=== PATIENT | male | born 1955 | race African-American/Black ===

== ENCOUNTER 2016-06-27 19:31 | Inpatient (IN) ==
[2016-06-27] MEDS ORDERED: NS 1,000 ML IV ONE ×3 (20:54→23:19)
--- NOTE | 2016-06-27 20:56 | PROVIDER DOCUMENTATION ---
HPI-General Adult - General Chief Complaint: High Blood Sugar Stated Complaint: HIGH SUGAR Time Seen by Provider: 06/27/16 20:55 Source: patient, family Unable to obtain history due to:: urgency Allergies/Adverse Reactions: Patient Allergies Allergy/AdvReac Type Severity Reaction Status Date / Time No Known Allergies Allergy Verified 06/27/16 21:11 Home Medications: Home Medication List Medication Instructions Recorded Confirmed Last Taken Type ATORVAstatin [Lipitor] 06/27/16 Unknown History Amlodipine Besylate [Norvasc] 10 mg PO DAILY 06/27/16 06/27/16 Unknown History Carvedilol [Coreg] 6.25 mg PO DAILY 06/27/16 06/27/16 Unknown History Insulin Detemir [Levemir] 20 units SQ 06/27/16 Unknown History LISINOpril [Prinivil] 10 mg PO DAILY 06/27/16 06/27/16 Unknown History Linagliptin [Tradjenta] 5 mg PO DAILY 06/27/16 06/27/16 Unknown History - History of Present Illness -Gen Adult Nature of Presenting Problems: 61 yom with increased blood sugar for a few weeks, been very weak, almost falling at home. Symptoms continue to get worse. Pt also has polyuria, polydipsia, polyphagia. Location of Pain/Injury: reports: none Associated Symptoms: reports: weakness, trouble walking - Diabetes Related Context Context: reports: high blood sugar Review of Systems - Adult - REVIEW OF SYSTEMS - ADULT Constitutional: reports: see HPI, chills Eyes: reports: no symptoms reported Ears, Nose, Mouth & Throat: reports: no symptoms reported Cardiovascular: reports: no symptoms reported Respiratory: reports: no symptoms reported Gastrointestinal: reports: see HPI, nausea Genitourinary: reports: see HPI, frequency Musculoskeletal: reports: see HPI, muscle weakness Integumentary: reports: no symptoms reported Neurological: reports: no symptoms reported Psychiatric: reports: no symptoms reported All Other Systems: Reviewed and Negative Past History - Adult - PAST MEDICAL HISTORY-ADULT Review of Records: reports: Old Records Reviewed, Nursing Assessment Review, Medications Reviewed, Social history reviewed & non-contributory. Physical Exam-General - PHYSICAL EXAM-ADULT Initial Vital Signs Reviewed: Yes - CONSTITUTIONAL General Appearance: appears well, alert, no apparent distress - EYES Eyes: PERRL/EOMI, pink conjunctivae - HEAD, EARS, NOSE, MOUTH & THROAT HENMT: normocephalic/atraumatic, moist mucous membranes, normal ENT inspection - NECK Neck: non-tender, full range of motion, supple - RESPIRATORY Respiratory: chest non-tender, lungs clear, normal breath sounds, no pleuratic chest pain, no respiratory distress, no accessory muscle use - CARDIOVASCULAR Cardiovascular: normal peripheral pulses, regular rate, rhythm, no edema, no gallop, no JVD, no murmur - GASTROINTESTINAL (ABDOMEN) Abdominal Exam: normal bowel sounds, non tender, soft, no organomegaly, no pulsatile mass - LYMPHATIC Lymphatic: no adenopathy - MUSCULOSKELETAL Back Exam: normal inspection, no CVA tenderness, no vertebral tenderness Extremity: normal range of motion, non-tender, normal inspection, no pedal edema , no calf tenderness, normal capillary refill, pelvis stable - SKIN Integumentary: normal color, normal turgor, warm/dry - NEUROLOGIC Neurologic: grossly normal - PSYCHIATRIC Psych/Mental Status: oriented x 3 Progress - PLAN OF CARE/RESULTS Progress/Plan/Lab Results: Vital Signs - 8 hr 06/27/16 19:47 Temperature 98.9 F Pulse Rate 110 H Respiratory Rate 24 Blood Pressure 149/94 O2 Sat by Pulse Oximetry 97 Orders Category Date Time Status FSBS [Finger Stick Blood Sugar (ED)] DIRECTED Care 06/27/16 19:58 Active ABG [RESP] Stat Lab 06/27/16 20:53 Ordered CBC WITH DIFF [HEME] Stat Lab 06/27/16 19:57 Ordered COMPREHENSIVE METABOLIC PANEL [CHEM] Stat Lab 06/27/16 19:[address] W/POSS RFLX CULT [URINALYSIS] Stat Lab 06/27/16 19:57 Uncollected Ns 1000 ml IV Bolus X1 Med 06/27/16 20:54 Ordered 0.9% Sodium Chloride Inj [Ns] 1,000 ml IV 999 mls/hr Result Diagrams: 06/27/16 20:55 06/27/16 20:55 - CT/MRI 1 CT Study: Head Impression: Normal (Per radiologist.) - CONSULTS/PCP/HOSPITALIST Notification #1 *Consult/PCP/Hospitalist*: Ramsey Time Discussed: 23:15 Consult Disposition: Admit Departure - Departure Time of Disposition Decision: 23:15 DIAGNOSIS: Dehydration, Hyperglycemia UTI (urinary tract infection) Qualifiers: Urinary tract infection type: site unspecified Hematuria presence: without hematuria Qualified Code(s): N39.0 - Urinary tract infection, site not specified Disposition: ADMITTED INPATIENT 09 Certified Medical Emergency: Emergent Condition: Stable Referrals and Follow-Ups: None,PCP [Primary Care Provider] - Attestation - Physician/ GEOFFREY Attestation Patient care was provided by Advanced Practice Provider:: Yes Advanced Practice Provider:: Juan Miguel Brown Advanced Practice Provider documentation review:: The Mid-level provider documentation, treatment plan and medical decision making was reviewed by the physician who agrees with all treatment and medical decision making by the MLP.
[2016-06-27 21:10] LABS: BLOOD TYPE ARTERIAL; DRAW SITE R BRACHIAL; METHB 1.3 % (0.0-1.5); O2(CT) 16.8 mL/dL (15.0-23.0); PCO2(98.6) 29 mmHg (35-45); PO2(98.6) 60 mmHg (60-100); SAMPLE BLOOD; SAO2 94.4 % (95.0-100.0); THB 13.1 g/dL (11.5-17.4); pH(98.6) 7.41 (7.35-7.45)
[2016-06-27 21:12] LABS: MODALITY ROOM AIR
[2016-06-27 21:18] LABS: BASO% 0.1 % (0.0-0.8); HEMATOCRIT 38.4 % (42.0-52.0); HEMOGLOBIN 12.8 g/dL (14.0-18.0); IMM GRAN# 0.04 X1000 (0.0-0.04); IMM GRAN% 0.3 % (0.0-0.5); LYMPH# 0.85 X1000 (1.2-3.4); LYMPH% 6.4 % (20.5-51.1); MANUAL DIFF NEEDED? YES; MCH 27.1 PG (27-31); MCHC 33.3 g/dL (33-37); MCV 81.2 FL (81-99); MONO# 0.57 X1000 (0.11-0.59); MONO% 4.3 % (1.7-9.3); MPV 9.5 FL (7.4-10.4); NEUT% 88.9 % (42.2-75.2); PLT 259 X1000 (130-400); RBC 4.73 XMIL (4.7-6.1)
[2016-06-27 21:27] LABS: LYMPHS 5 % (21-51); MONO 2 % (1-9)
[2016-06-27 21:49] LABS: ALBUMIN 3.1 g/dL (3.5-5.0); CALCIUM 9.1 mg/dL (8.8-10.2); POTASSIUM 4.4 mmol/L (3.5-5.1); TOTAL BILIRUBIN 0.5 mg/dL (0.20-1.00); TOTAL PROTEIN 7.2 g/dL (6.3-8.3)
[2016-06-27] MEDS ORDERED: HUMULIN R (PARKWAY) IV ONE (22:10)
[2016-06-27 22:59] LABS: BILIRUBIN URINE NEGATIVE (NEGATIVE); BLOOD URINE 4+ (NEGATIVE); CLARITY CLEAR (CLEAR); COLOR YELLOW; LEUKOCYTES URINE NEGATIVE (NEGATIVE); NITRITE URINE NEGATIVE (NEGATIVE); UROBILINOGEN URINE NORMAL
[2016-06-27 23:00] LABS: URINE CULTURE PL NEEDED? YES; URINE EPITHELIAL CELLS <10 /HPF (<10); URINE SOURCE CLEAN CATCH; URINE WBC <10 /HPF (<10)
[2016-06-27] MEDS ORDERED: ROCEPHIN 1 GM/NS 1 GM/50 ML IVPB IV ONE (23:07)
[2016-06-27] MEDS ORDERED: ZOFRAN IV ONE (23:13)
[2016-06-27] MEDS ORDERED: TORADOL IV PRN (23:19)
[2016-06-27] MEDS ORDERED: ZOFRAN IV PRN (23:19)
[2016-06-27] MEDS ORDERED: MORPHINE IV PRN (23:19)
[2016-06-28] MEDS: TYLENOL PO PRN (02:32)
--- NOTE | 2016-06-28 04:30 | Diag Imaging Result Document ---
PROCEDURE NAME: HEAD W/O CONTRAST - 06/27/2016 STUDY: CT brain without. No parenchymal hemorrhage. No epidural or subdural hematoma. No subarachnoid hemorrhage. There are chronic microvascular ischemic changes. No hydrocephalus. No sinus opacification. No skull fracture. IMPRESSION: 1. No hemorrhage. No injury. 2. Chronic microvascular ischemic changes. A preliminary report was given at 9:44 p.m.
--- NOTE | 2016-06-28 06:33 | Diag Imaging Result Document ---
PROCEDURE NAME: CHEST-2 VIEWS - 06/28/2016 FRONTAL AND LATERAL CHEST, TWO VIEWS: COMPARISON: No comparison films. FINDINGS: Mild increased interstitial markings in the lung bases. The heart is not enlarged. The vessels are not distended. No pleural effusions. IMPRESSION: Basilar atelectasis. Followup films may be beneficial.
--- NOTE | 2016-06-28 06:48 | EKG Report ---
Test Performed on : 06/28/2016 00:23:38 AM Test Reason : TACHY/WEAK Blood Pressure : / mmHG Vent. Rate : 105 BPM Atrial Rate : 105 BPM P-R Int : 116 ms QRS Dur : 072 ms QT Int : 328 ms P-R-T Axes : 058 033 062 degrees QTc Int : 433 ms Sinus tachycardia. Nonspecific T wave abnormality Abnormal ECG No previous ECGs available Unconfirmed Result
[2016-06-28] MEDS ORDERED: PRINIVIL PO SCH (09:45)
[2016-06-28] MEDS ORDERED: NS 1,000 ML IV SCH (09:55)
[2016-06-28] MEDS ORDERED: HUMALOG DOSE (PARKWAY) SUBQ SCH (11:00)
[2016-06-28] MEDS: COREG PO SCH (11:18)
[2016-06-28] MEDS: NORVASC PO SCH (11:18)
[2016-06-28] MEDS: TRADJENTA PO SCH (11:19)
[2016-06-28] MEDS: MORPHINE IV PRN (11:23)
[2016-06-28 11:31] LABS: BASO% 0.1 % (0.0-0.8); HEMATOCRIT 35.9 % (42.0-52.0); HEMOGLOBIN 12.1 g/dL (14.0-18.0); IMM GRAN# 0.02 X1000 (0.0-0.04); IMM GRAN% 0.3 % (0.0-0.5); LYMPH# 0.68 X1000 (1.2-3.4); LYMPH% 8.8 % (20.5-51.1); MANUAL DIFF NEEDED? YES; MCH 27.5 PG (27-31); MCHC 33.7 g/dL (33-37); MCV 81.6 FL (81-99); MONO# 0.11 X1000 (0.11-0.59); MONO% 1.4 % (1.7-9.3); MPV 9.5 FL (7.4-10.4); NEUT% 89.4 % (42.2-75.2); PLT 258 X1000 (130-400)
[2016-06-28 11:32] LABS: LYMPHS 9 % (21-51); MONO 1 % (1-9)
[2016-06-28 11:39] LABS: HEMOGLOBIN A1C 13.2 % (4.8-6.0)
[2016-06-28 11:44] LABS: CALCIUM 8.8 mg/dL (8.8-10.2); POTASSIUM 4.6 mmol/L (3.5-5.1)
[2016-06-28] MEDS: LEVEMIR INSULIN *HA SUBQ SCH (11:50)
[2016-06-28 12:09] LABS: ALLEN TEST NO
[2016-06-28] MEDS ORDERED: D50W SYRINGE IV PRN (13:06)
[2016-06-28] MEDS ORDERED: D5 NS 1,000 ML IV SCH (13:06)
[2016-06-28] MEDS ORDERED: HUMULIN R 100 UNIT in NS 99 ML IV SCH (13:06)
[2016-06-28] MEDS ORDERED: HUMULIN R DOSE (PARKWAY) IV ONE ×2 (13:15)
[2016-06-28] MEDS: NS 1,000 ML IV SCH ×3 (13:35→15:36)
[2016-06-28 13:39] LABS: BE -1.1 mmoll (-3.0-3.0); BLOOD TYPE ARTERIAL; DRAW SITE R RADIAL; METHB 1.5 % (0.0-1.5); O2(CT) 13.9 mL/dL (15.0-23.0); PCO2(98.6) 38 mmHg (35-45); PO2(98.6) 66 mmHg (60-100); SAMPLE BLOOD; THB 10.6 g/dL (11.5-17.4)
[2016-06-28 13:48] LABS: MODALITY CANNULA
[2016-06-28 13:49] LABS: ALLEN TEST YES
--- NOTE | 2016-06-28 14:15 | HISTORY AND PHYSICAL ---
PRIMARY CARE PHYSICIAN: Unknown. CHIEF COMPLAINT: Increased blood sugar, increased weakness, polyuria, polydipsia and polyphagia. HISTORY OF PRESENTING ILLNESS: This is a 61-year-old, male, who presents to [facility] ER with complaints of increased blood sugar, increased weakness, polyuria, polydipsia and polyphagia. On arrival, his labs showed a white blood cell count of 13.33. His pCO2 via his ABG was 29. Sodium was 127, chloride 84, CO2 was 17. BUN of 33 with a creatinine of 2.2. Glucose was 434. Urinalysis had 2+ ketones, negative nitrites, negative white blood cells, and 2+ bacteria. He was admitted for further evaluation and treatment. PAST MEDICAL HISTORY: Diabetes type 2, hypertension, hyperlipidemia. PAST SURGICAL HISTORY: Heart stent placement. FAMILY HISTORY: Noncontributory. SOCIAL HISTORY: He currently lives alone. Denies any tobacco use. States he drinks a beer occasionally. Suspect that he may drink a little more than he is initially admitting to and denies any illicit drug use. ALLERGIES: He has no known drug allergies. HOME MEDICATIONS: He takes: 1. Lipitor 40 mg p.o. daily. 2. Levemir 20 units subcutaneous daily. Patient also states that occasionally he gives himself 10 units of Levemir at night, but that this has not been ordered by the doctor. 3. Norvasc 10 mg p.o. daily. 4. Coreg 6.25 mg p.o. daily. 5. Tradjenta 5 mg p.o. daily. 6. Prinivil 10 mg p.o. daily. LABORATORY DATA: On arrival had a white blood cell count of 13.33, hemoglobin 12.8, hematocrit 38.4, platelets 259. ABG with a pH of 7.41, pCO2 of 29, PO2 60, bicarbonate 20.9. Sodium 127, potassium 4.4, chloride 84, CO2 17, BUN of 33 with a creatinine of 2.2, glucose of 434. Urinalysis showed 2+ ketones, negative nitrites, negative white blood cells, 2+ bacteria. RADIOLOGIC DATA: Chest x-ray showed bibasilar atelectasis. Head CT showed no hemorrhage, no injury. Chronic microvascular ischemic changes. EKG showed sinus tachycardia at 105. REVIEW OF SYSTEMS: He denied any fever, chills, blurred vision, dizziness. He was positive for weakness, polyuria, polydipsia, polyphagia. Denied any chest pain, coughing, shortness of breath, abdominal pain, constipation, diarrhea, burning or hurting with urination. PHYSICAL EXAMINATION: VITAL SIGNS: On arrival, he had a temperature of 98.9 degrees, pulse 110, respirations 24, blood pressure 149/94, satting 97% on room air. GENERAL: This is a 61-year-old, male, who is lying in the bed, answers questions appropriately. HEENT: Normocephalic and atraumatic. Pupils are equal, round, and reactive to light. Extraocular movements are intact. Oropharynx and nares are clear. NECK: Supple. LUNGS: Clear to auscultation bilaterally with equal lung expansion and chest wall movement. HEART: With regular rate and rhythm. No murmurs, rubs, or gallops. ABDOMEN: Soft, nontender, nondistended. Bowel sounds are present x4 quadrants. EXTREMITIES: No clubbing, cyanosis, or edema. NEUROLOGICAL: The cranial nerves 2-12 appear grossly intact. ASSESSMENT: 1. Diabetes type 2, uncontrolled with hyperglycemia. 2. Hypertension. 3. Acute kidney injury. 4. Generalized weakness. PLAN: He was admitted to the medical unit at [place] [place], placed on telemetry, diabetic diet. He was given 2 normal saline boluses in the ER, and then placed on normal saline at 100 mL an hour. We will check a hemoglobin A1c,. CBC, BMP this a.m. Urine culture is pending. We will place him on pattern blood sugars with sliding scale insulin. Continue his home medications and recheck labs in the a.m. Dictated by SHALONDA Chicas for Td Russell MD cc: SHALONDA Chicas MD
[2016-06-28 14:25] LABS: POTASSIUM 3.6 mmol/L (3.5-5.1)
[2016-06-28 14:25] LABS: URINE CULTURE PL NEEDED? NO
[2016-06-28 14:38] LABS: BILIRUBIN URINE NEGATIVE (NEGATIVE); BLOOD URINE 4+ (NEGATIVE); CLARITY CLEAR (CLEAR); COLOR YELLOW; LEUKOCYTES URINE NEGATIVE (NEGATIVE); NITRITE URINE NEGATIVE (NEGATIVE); SP GRAVITY URINE 1.015; UROBILINOGEN URINE NORMAL
[2016-06-28 14:39] LABS: URINE EPITHELIAL CELLS <10 /HPF (<10); URINE SOURCE CATH; URINE WBC <10 /HPF (<10)
[2016-06-28] MEDS: ZOSYN 3.375 GM/NS 3.375 GM/50 ML IVPB IV SCH ×2 (14:50→21:18)
--- NOTE | 2016-06-28 15:34 | Diag Imaging Result Document ---
PROCEDURE NAME: FOOT COMPLETE LEFT - 06/28/2016 LEFT FOOT, 3 VIEWS: COMPARISON: None available. FINDINGS: There is a small undersurface calcaneal enthesophyte. There is a small osteophyte at the anterior aspect of the distal tibia. There is no discrete fracture, dislocation, or significant intrinsic osseous lesion, otherwise. There is no definite bony erosion identified on these images to indicate osteomyelitis at this time by plain radiograph. There is atherosclerotic calcification involving the ankle and foot that is mild. IMPRESSION: No plain radiograph sign of osteomyelitis at this time.
--- NOTE | 2016-06-28 15:35 | Diag Imaging Result Document ---
PROCEDURE NAME: FOOT COMPLETE RIGHT - 06/28/2016 PLAIN RADIOGRAPH OF THE RIGHT FOOT 4 VIEWS: COMPARISON: None available. FINDINGS: There is a tiny undersurface calcaneal osteophyte. There is no evidence of fracture, dislocation, or intrinsic osseous lesion, otherwise. The joint spaces appear to be preserved. There is no discrete bony erosion identified to indicate osteomyelitis by plain radiograph at this time. Surrounding soft tissues are essentially unremarkable except for mild atherosclerotic calcification involving the foot and ankle. IMPRESSION: No radiographic evidence of osteomyelitis at this time, and no other definite acute osseous abnormality.
[2016-06-28 15:49] LABS: MAGNESIUM 1.9 mg/dL (1.5-2.7)
[2016-06-28] MEDS: CLINDAMYCIN 600 MG/NS 600 MG/50 ML IVPB IV SCH ×2 (15:51→23:31)
[2016-06-28] MEDS ORDERED: HEPARIN IV ONE (18:45)
[2016-06-28 18:48] LABS: CALCIUM 7.3 mg/dL (8.8-10.2); POTASSIUM 3.5 mmol/L (3.5-5.1)
[2016-06-28] MEDS ORDERED: HEPARIN 25,000 UNIT in NS 250 ML IV SCH (19:00)
[2016-06-28] MEDS ORDERED: LEVOPHED 8 MG in D5 1/2 NS 250 ML IV SCH (20:00)
[2016-06-28 20:08] LABS: MAGNESIUM 1.7 mg/dL (1.5-2.7)
--- NOTE | 2016-06-28 21:25 | CONSULTATION ---
DATE OF CONSULTATION: 06/28/2016 REQUESTING PHYSICIAN: Td Russell MD. REASON FOR CONSULTATION: Possible dry gangrene in the right lower extremity. HISTORY OF PRESENT ILLNESS: A 61-year-old, male presented initially to the [place] ER with complaints of weakness, polyuria, polydipsia, polyphasia and hyperglycemia. He was evaluated and admitted to the hospital for potential diabetic ketoacidosis. He was being evaluated by the Hospitalist Service and it was noted that he had ischemia to his right foot. There has been an DAREN ordered but it has not been done as of this moment. Patient is somewhat obtunded and it is difficult to get a full history, but per his family it sounds like there have been issues with potential claudication and rest pain in the past. He has had previous heart stents and is diabetic so he likely has some degree of underlying peripheral vascular disease. I was asked to evaluate the patient given the concern for ischemic foot. Again the patient is somewhat obtunded and it is difficult to get a full history but I did discuss the care with the patient's family. I also discussed the patient's care with Dr. Russell. PAST MEDICAL HISTORY: Diabetes mellitus type 2, hypertension, hyperlipidemia. PAST SURGICAL HISTORY: Includes previous heart stent. FAMILY HISTORY: Reviewed with patient and family but noncontributory. SOCIAL HISTORY: He lives alone. He reported drinking occasionally. No illicit drugs. No smoking history. ALLERGIES: None. HOME MEDICATIONS: Of note, patient is on Lipitor, Levemir, Norvasc, Coreg, Tradjenta, Proventil. REVIEW OF SYSTEMS: A full 10 point review of systems was obtained and negative except as specified in HPI. PHYSICAL EXAMINATION: Vital Signs: Patient is currently afebrile, most recent temperature 98.3, most recent pulse 85, most recent respiratory rate 20, most recent blood pressure 87/61, O2 saturation 98% on 2 L nasal cannula. General Examination: In no acute distress but somewhat obtunded, male who looks stated age. HEENT: Normocephalic, atraumatic. Pupils equal, round, reactive to light. Mucous membranes moist. Oropharynx benign. Neck: Supple. Trachea midline. Cardiovascular: Regular rate and rhythm. Lungs: Grossly clear. Abdomen: Soft, nontender, nondistended. Extremities: There is some cyanosis and ischemic changes noted to the right great toe and to the plantar aspect with some splotchy areas of cyanosis noted to the foot. Vascular Examination: Bounding Doppler signal in the popliteal of the right lower extremity. I could not find a dorsalis pedis or posterior tibial on the right lower extremity. He has a monophasic dorsalis pedis and posterior tibial on the left lower extremity. Neurologic: The patient is able to move all extremities. Difficult to assess sensation. LABORATORY: White blood cell count 6, hematocrit 35, platelet count 258,000. ABG reviewed. Laboratory reviewed. Of note, patient's sodium is 127, glucose 198, potassium 3.6. ASSESSMENT AND PLAN: A 61-year-old male with diabetic ketoacidosis and possible ischemic right lower extremity. 1. Diabetic ketoacidosis at this time being managed by the Hospitalist Service. He has been admitted to the ICU. We will continue resuscitation. We will continue to monitor. 2. Potential chronic ischemic right lower extremity. At this time patient's history suggests he has had peripheral vascular disease for some time. Unsure of the exact timing of this acute exacerbation. At this time he has what appears to be dry gangrene. He is on antibiotics. We have an DAREN pending. I suspect he has underlying peripheral vascular disease given his history and physical examination. I suspect he would be a poor candidate for any kind of bypass procedure. I suspect he will most likely require an amputation. DAREN may determine if a BKA is feasible versus [id number] amputation. 3. I had an extensive discussion with the family at the bedside about all this. We will continue to monitor. We will start the patient on a heparin drip. I did discuss starting the heparin drip with Dr. Russell. We will monitor for any signs of bleeding. cc: Dimas Cisse MD
[2016-06-28 21:49] LABS: CALCIUM 7.5 mg/dL (8.8-10.2); POTASSIUM 3.8 mmol/L (3.5-5.1)
[2016-06-29 00:05] LABS: MAGNESIUM 1.8 mg/dL (1.5-2.7)
[2016-06-29 02:04] LABS: CALCIUM 7.6 mg/dL (8.8-10.2); POTASSIUM 3.7 mmol/L (3.5-5.1)
[2016-06-29] MEDS: NS 1,000 ML IV SCH ×4 (02:29→22:10)
[2016-06-29] MEDS: ZOSYN 3.375 GM/NS 3.375 GM/50 ML IVPB IV SCH ×4 (02:43→20:16)
[2016-06-29] MEDS ORDERED: HEPARIN IV PRN (02:49)
[2016-06-29] MEDS ORDERED: HEPARIN 25,000 UNIT in NS 250 ML IV SCH ×2 (03:24→19:00)
[2016-06-29 03:53] LABS: MAGNESIUM 1.8 mg/dL (1.5-2.7)
--- NOTE | 2016-06-29 05:48 | PROGRESS NOTE ---
DATE: 06/29/2016 SUBJECTIVE: No major issues reported by the nursing staff. The patient is doing okay. His heparin drip has been going without complication. OBJECTIVE: Vital Signs: Patient is currently afebrile. His vital signs have been stable. General: No acute distress. More alert today, compared to yesterday. HEENT: Normocephalic, atraumatic. Pupils equal, round, react to light. Mucous membranes moist. Oropharynx benign. Neck: Supple. Trachea midline. Cardiovascular: Regular rate and rhythm. Lungs: Grossly clear. Abdomen: Soft, nontender, nondistended. Extremities: Still no dorsalis pedis or posterior tibial signal on the right side. Monophasic on the left side. There is some cyanosis noted that is similar to previous exams on the plantar and dorsal aspects of the foot. The great toe is ischemic, but it is still dry gangrene. LABORATORY STUDIES: Reviewed. ASSESSMENT AND PLAN: A 61-year-old male with right lower extremity ischemia. Right lower extremity ischemia at this time. It is likely chronic. He likely has significant peripheral vascular disease. He is on a heparin drip. We will get a lower extremity arterial study today, follow up with that, but discussed with the family he may need an amputation, likely [id number] amputation. We will follow up with the results and make further decisions later today. cc: Dimas Cisse MD
[2016-06-29 05:56] LABS: MANUAL DIFF NEEDED? NO
[2016-06-29 06:38] LABS: CALCIUM 7.6 mg/dL (8.8-10.2); POTASSIUM 3.4 mmol/L (3.5-5.1)
[2016-06-29 06:59] LABS: BASO% 0.1 % (0.0-0.8); EOS# 0.01 X1000 (0.0-0.7); EOS% 0.1 % (0.0-10.0); HEMATOCRIT 26.9 % (42.0-52.0); HEMOGLOBIN 8.8 g/dL (14.0-18.0); IMM GRAN# 0.03 X1000 (0.0-0.04); IMM GRAN% 0.2 % (0.0-0.5); LYMPH# 1.39 X1000 (1.2-3.4); LYMPH% 11.5 % (20.5-51.1); MCH 26.6 PG (27-31); MCHC 32.7 g/dL (33-37); MCV 81.3 FL (81-99); MONO# 1.27 X1000 (0.11-0.59); MONO% 10.5 % (1.7-9.3); MPV 10.4 FL (7.4-10.4); NEUT% 77.6 % (42.2-75.2); PLT 195 X1000 (130-400); RBC 3.31 XMIL (4.7-6.1)
[2016-06-29 07:48] LABS: MAGNESIUM 1.8 mg/dL (1.5-2.7)
[2016-06-29] MEDS: CLINDAMYCIN 600 MG/NS 600 MG/50 ML IVPB IV SCH ×2 (09:16→15:30)
[2016-06-29] MEDS: TRADJENTA PO SCH (09:20)
[2016-06-29] MEDS: COREG PO SCH (09:20)
[2016-06-29] MEDS: NORVASC PO SCH (09:21)
[2016-06-29] MEDS: LEVEMIR INSULIN *HA SUBQ SCH ×2 (09:21→10:40)
[2016-06-29 10:01] LABS: CALCIUM 7.7 mg/dL (8.8-10.2); POTASSIUM 3.4 mmol/L (3.5-5.1)
[2016-06-29 10:25] LABS: MAGNESIUM 1.8 mg/dL (1.5-2.7)
[2016-06-29] MEDS: HEPARIN IV PRN ×2 (10:41→18:35)
[2016-06-29] MEDS: MORPHINE IV PRN ×3 (11:31→20:16)
--- NOTE | 2016-06-29 11:54 | PROGRESS NOTE ---
DATE: 06/29/2016 SUBJECTIVE: The patient has no major complaints. OBJECTIVE: Vital signs: Blood pressure 116/70, heart rate 78, respiratory 15, temperature 98.6 degrees, 99% on 2 L. Cardiovascular: Regular rate and rhythm. Pulmonary: Bilateral breath sounds. Clear to auscultation. GI: Soft, nontender, nondistended. Bowel sounds are positive. Skin Exam: On right extremity he has a necrotic toe and he has erythema over his dorsum and bullae. No dorsalis pedis pulse was palpated. Trace edema. LABORATORY DATA: Showed a white count of 12, hemoglobin and hematocrit of 8 and 26, platelets 195,000 with a normal MCV. BUN and creatinine of 43 and 3 which is not to far off from previous. PROBLEM LIST: 1. Gangrenous foot. [place] to be dry gangrene, although I am a little concerned there may be some underlying sepsis. I think the hypotension and all of that may be related to that, although microbiologically there is no bacteremia at this point. He is on clindamycin and Zosyn and we will continue that. So, we will continue to monitor on that. Anticipate he will need a BKA based on his arterial studies. He has not developed enough shock. Apparently had an episode of hypotension last night but that has since resolved. I am going to hold his antihypertensives for the time being except for his low-dose Coreg. 2. Diabetic ketoacidosis, diabetes. Appears to be improved. Will switch him back to Levemir, take him off the insulin drip, and follow clinically. 3. Acute kidney injury. Likely related to sepsis. Has stabilized. Urine output is decent. We will continue hydration. Check urine electrolytes. Check renal ultrasound. If unimproved or worsening may need to get renal/nephrology input. 4. Disposition. As I anticipate he will need a BKA we will transfer to [facility] for further management. cc: Jaime Contreras MD
[2016-06-29 13:43] LABS: UR CREAT RANDOM 45.3 mg/dL (14-26); UR PROT RANDOM 80.7 mg/dL
[2016-06-29 15:26] LABS: MAGNESIUM 1.8 mg/dL (1.5-2.7)
[2016-06-29] MEDS: HUMULIN R DOSE (PARKWAY) SUBQ SCH ×2 (15:56→20:16)
--- NOTE | 2016-06-29 16:32 | Diag Imaging Result Document ---
PROCEDURE NAME: US RENAL 2 (RETROPER) COMPLETE - 06/29/2016 RENAL ULTRASOUND: COMPARISON: None. FINDINGS: The kidneys and urinary bladder are normal. The right kidney measures 11.7 x 4.8 x 5.6 cm. Cortex measures 1 cm. The left kidney measures 10.3 x 3.6 x 5.6 cm. Cortex measures 7 mm. There is a Reis catheter in the urinary bladder. The bladder is otherwise normal. The prostate measures 4.4 x 3.8 x 3 cm. IMPRESSION: Negative exam.
[2016-06-29 19:53] LABS: MAGNESIUM 1.8 mg/dL (1.5-2.7)
[2016-06-29] MEDS: TYLENOL PO PRN (20:17)
[2016-06-30] MEDS: CLINDAMYCIN 600 MG/NS 600 MG/50 ML IVPB IV SCH ×2 (00:12→08:07)
[2016-06-30] MEDS ORDERED: HEPARIN IV ONE (01:34)
[2016-06-30] MEDS ORDERED: HEPARIN 25,000 UNIT in NS 250 ML IV SCH (01:35)
[2016-06-30] MEDS: ZOSYN 3.375 GM/NS 3.375 GM/50 ML IVPB IV SCH ×2 (01:53→10:18)
[2016-06-30 05:26] LABS: HEMATOCRIT 27.6 % (42.0-52.0); HEMOGLOBIN 9.2 g/dL (14.0-18.0); MCH 27.6 PG (27-31); MCHC 33.3 g/dL (33-37); MCV 82.9 FL (81-99); MPV 10.6 FL (7.4-10.4); RBC 3.33 XMIL (4.7-6.1)
[2016-06-30 05:48] LABS: MAGNESIUM 1.7 mg/dL (1.5-2.7)
[2016-06-30 06:03] LABS: IRON SATURATION 21 %; TIBC 104 ug/dL; TOTAL IRON 22 ug/dL (53-167); UNBOUND IRON 82 ug/dL (112-346)
[2016-06-30] MEDS: HUMULIN R DOSE (PARKWAY) SUBQ SCH ×4 (06:03→21:26)
[2016-06-30] MEDS: MORPHINE IV PRN ×4 (06:51→21:26)
--- NOTE | 2016-06-30 07:56 | PROGRESS NOTE ---
DATE: 06/30/2016 SUBJECTIVE: The patient is transferred over from [facility]. His mental status has improved. No major issues reported by the nursing staff. I did discuss his care with Dr. Contreras and Dr. Russell yesterday. OBJECTIVE: Vital Signs: Patient is currently afebrile with a temperature max of 99.7. Pulse is regular at 95, respiratory rate nonlabored at 18, blood pressure 126/74, O2 saturation 99% on room air. General: No acute distress. More alert today. Cardiovascular: Regular rate and rhythm. Lungs: Grossly clear. Abdomen: Soft, nontender, nondistended. Extremities: Still no dorsalis pedis or posterior tibial signal on the right side. Monophasic at best on the left side for both of those arteries. There are still signs of ischemic changes noted to his foot on the right side. LABORATORY: Reviewed. ASSESSMENT AND PLAN: A 61-year-old male with right lower extremity ischemia. 1. Right lower extremity ischemia: At this time, likely acute on chronic. His lower extremity arterial study showed significant peripheral vascular disease from the level of the popliteal artery distally. I suspect given this, that he would have poor chance of healing any toe amputation and his best chance for healing would be a [id number] amputation. Discussed this with the family. We will also need to hold his heparin drip for 6 hours prior to the surgery. They will consider surgery and let me know if they want proceed. We have him tentatively scheduled for this afternoon. 2. Hospitalist to manage his multiple medical comorbidities. cc: Dimas Cisse MD
[2016-06-30] MEDS: LEVEMIR INSULIN *HA SUBQ SCH (08:04)
[2016-06-30] MEDS: TRADJENTA PO SCH (08:04)
[2016-06-30] MEDS: COREG PO SCH (08:07)
[2016-06-30] MEDS: NS 1,000 ML IV SCH ×3 (08:07→22:36)
[2016-06-30 09:00] LABS: CALCIUM 7.6 mg/dL (8.8-10.2); POTASSIUM 3.8 mmol/L (3.5-5.1)
[2016-06-30] MEDS ORDERED: CUBICIN (FOR INPATIENT USE) 500 MG in NS 100 ML IV SCH ×4 (11:00)
[2016-06-30] MEDS ORDERED: KETAMINE (DOSE) ONE (13:57)
--- NOTE | 2016-06-30 14:31 | ECHO REPORT ---
ORDER DATE: 06/30/2016 PROCEDURE: Echocardiogram. DATE OF STUDY: 06/30/2016. INDICATION: Endocarditis, hypertension, hyperlipidemia. FINDINGS: 1. Right atrium appears normal in size at 3.4 cm. 2. Mild tricuspid regurgitation. RV systolic pressure of 39. 3. Normal RV size and systolic function. 4. Trace pulmonic insufficiency. 5. Normal left atrial size at 3.6 cm. 6. No mitral prolapse. Trace mitral regurgitation. 7. Normal LV size, end-diastolic dimension of 4.6. Mild left ventricular hypertrophy with a posterior and interventricular septal wall thickness of 1.2 cm each. Borderline normal LV systolic function. The estimated EF is 50% with normal wall motion. 8. Aortic valve opens well. No evidence of stenosis. Mild aortic insufficiency. 9. Aorta appears normal in visualized segments. 10. No pericardial effusion seen. cc: MD Brendan Britt MD
[2016-06-30] MEDS: MORPHINE ONE ×4 (14:57→15:20)
[2016-06-30] MEDS ORDERED: NS 1,000 ML ONE (14:59)
[2016-06-30] MEDS ORDERED: ROBINUL ONE (14:59)
[2016-06-30] MEDS ORDERED: XYLOCAINE-MPF 2% ONE (14:59)
--- NOTE | 2016-06-30 16:50 | CONSULTATION ---
DATE OF CONSULTATION: 06/30/2016 CONCLUSION: The patient has a gram-positive coccal bacteremia. I think this originated from his foot and I think most likely the organism would be Staphylococcus aureus, although it could be a Streptococcus, such as a group B strep. RECOMMENDATIONS: I have switched the patient from Zosyn and clindamycin to daptomycin. The dose has been decreased because of the patient's end-stage renal disease. DISCUSSION: The patient said that he had in the past week become very weak. He had pain in his right foot. He had became dehydrated. He had fever and chills. He was admitted to the hospital here. He has a right foot gangrene. He is scheduled to have surgery today on his foot. LABORATORY STUDIES: The patient's laboratory studies show a white count of 11,360, hemoglobin 9.2, and platelet count 205,000. Abdominal x-ray was normal. Blood cultures are growing gram positive cocci. Urine culture is mixed. The patient's CBC shows a white count of 11,360, hemoglobin 9.2, and platelet count 205,000. Creatinine is 3.3. The GFR is 23. The x-ray the abdomen is normal. The patient's blood cultures growing gram positive cocci. The urine culture is mixed. The patient's chest x-ray shows bibasilar atelectasis. CT scan of the head showed no hemorrhage. Renal ultrasound showed no abnormalities. RECOMMENDATIONS: I have switched the patient from clindamycin and Zosyn to daptomycin. The dose has been decreased because of the patient's end-stage renal disease. I have discontinued the patient's Lipitor because it could interact with the daptomycin I put the patient on to cause muscle toxicity. When the treatment of daptomycin is done, then the patient can restart his Lipitor. REVIEW OF SYSTEMS: Eyes and Ears: Patient denies difficulty hearing or seeing. Neck: No stiffness. Lungs: Clear to auscultation. Cardiovascular: Heart rate was regular. I could feel peripheral pulses in the arms but not the legs. Abdomen: Soft and nontender. Extremities: The patient's right foot was gangrenous medially. There also was an area of drainage with a serosanguineous fluid which I obtained and sent for culture. Endocrine: The patient is a diabetic. He does not have thyroid disease. PREVIOUS HOSPITALIZATIONS AND OPERATIONS: He has had coronary artery stents placed. He also has had a transurethral resection of the prostate. FAMILY HISTORY: Positive for diabetes mellitus, hypertension, and myocardial infarction. INFECTIOUS DISEASE HISTORY: Negative for pneumonia and urinary tract infection. SOCIAL HISTORY: The patient lives alone. He is a . He has a dog as a pet. He does not smoke cigarettes. He occasionally drinks beer. He does not abuse drugs. HOME MEDICATIONS: Include Lipitor, Levemir, Norvasc, Coreg, Tradjenta, and Prinivil. PHYSICAL EXAMINATION: Temperature is 98.9 degrees, pulse 86, respirations 18, blood pressure 136/71. The patient weighs 164 pounds.General Appearance: This is a somewhat ill-appearing elderly male. He is in no acute distress. Head, eyes, ears, nose, and throat: He can hear my spoken words and see near objects. No drainage noted from his nose or ears. Neck: No meningismus. Thorax: Thorax has a slight increase in the AP diameter. Abdomen: Soft without masses or tenderness. Extremities: The peripheral pulses are palpable in the arms. They were diminished in the legs. The patient's right foot had dry gangrenous changes in the medial distal part of the foot. There was; however, a small area where there was some serosanguineous drainage, which I have took a culture of and sent for culture, including identification and susceptibility testing. Neurologic: The patient is awake. He can move his extremities. There is no tremor. His sensation is intact to touch. Thank you for the consult. cc: Brendan Payne MD
--- NOTE | 2016-06-30 17:15 | PROGRESS NOTE ---
DATE: 06/30/2016 SUBJECTIVE: Patient reports no complaints today. No fever or chills. OBJECTIVE: Vital Signs: Temperature 101.1, heart rate 82, respiratory rate 22, blood pressure 109/62, O2 saturation 100% on 2 L nasal cannula. General Examination: This is a 61-year-old, male, lying in bed, in no acute distress. HEENT: Head is normocephalic, atraumatic. Anicteric sclerae and pale conjunctivae. Mucous membranes moist. Neck: Supple. No JVD noted. No carotid bruits. No lymphadenopathy. No thyromegaly. Cardiovascular Exam: S1-S2 heard. No murmurs, gallops, or rubs. Regular rate and rhythm. Respiratory: Clear bilaterally to auscultation. No work of breathing or using accessory muscles. Abdomen: Soft, nontender to palpation. Bowel sounds present. No organomegaly. Extremity: Right extremity, he has a necrotic toe, who has erythema over his dorsum and bullae. No peripheral pulses present. LABORATORY DATA: White cell count 11.36, hemoglobin 9.2, hematocrit 27.6, platelets 205. Creatinine 3.3. ASSESSMENT AND PLAN: 1. Gangrenous foot. Dr. Cisse from General surgery has seen this patient and they are planning to take him to the OR today. We will follow recommendations. 2. Diabetic ketoacidosis. That condition is completely resolved, and the anion gap has closed. So patient has been restarted on Levemir. We will continue checking BMP daily. 3. Acute kidney injury, most likely related to sepsis. Urine output is fine. Renal function is getting a little bit worse today, 3.3 creatinine and 3.0 creatinine. We will continue basically with the same management and IV fluid resuscitation. cc: Zac De La Cruz MD
--- NOTE | 2016-06-30 22:47 | OPERATIVE NOTE ---
PROCEDURE DATE: 06/30/2016 PREOPERATIVE DIAGNOSIS: Ischemic right lower extremity. POSTOP DIAGNOSIS: Ischemic right lower extremity. PROCEDURE: Right ptuyn-fvd-kmxm amputation. SURGEON: Dimas Cisse MD. SLAB PULLER: Antonio Childs MD. ANESTHESIA: General endotracheal. INTRAOPERATIVE FINDINGS: As above. COMPLICATIONS: None at time of dictation. ESTIMATED BLOOD LOSS: 75 mL. SPECIMENS REMOVED: Right leg. BRIEF HISTORY: The patient is a 61-year-old male with longstanding diabetes, and history of rest pain and claudication, presenting with altered mental status and diabetic ketoacidosis. He was found to have an ischemic right lower extremity. We did lower extremity arterial study. He had poor flow past his knee and he started having gangrene noted to his right great toe and to the plantar and dorsal aspects of his foot. It was felt the patient would not likely respond to vascular intervention given his poor circulation and the artery ischemic changes noted. It was felt the patient would benefit from wpgjo-ctj-iqzb amputation. I did have an extensive discussion with the family about this. They voiced understanding. The patient voiced understanding and wished to proceed with procedure. DESCRIPTION OF PROCEDURE: After informed consent was obtained, patient brought to the operative theatre, transferred to the operating table, placed in supine position. General endotracheal anesthesia was then performed without complication. A formal time-out was performed confirming patient, date, procedure. All were in agreement. At that time, attention was given to the right lower extremity which was previously marked, confirmed, identified the patient in preoperative holding. This area was again prepped and draped. We made a standard blood the knee amputation with posterior flap incision about 2 fingerbreadths below the tibial promontory, carried down through subcutaneous tissue to the tibia 1st. We used the Gigli saw to transect the tibia. We shaped it to make it amenable for amputation. We then continued to dissect through the muscles, ligated all the major vessels and nerves that we noticed. We continued down until we found the fibula which we transected it also with the Gigli saw and tailored it with a rongeur and rasp to appropriate size, smoothness. Once we had done this, we fashioned our posterior flap, brought it up anteriorly and closed the below the knee amputation in standard fashion with Vicryl stitches and sutures. The patient had a sterile dressing applied. Postoperatively, he will have a knee immobilizer placed and will monitor his wound. cc: Dimas Cisse MD
[2016-07-01] MEDS: MORPHINE IV PRN ×7 (00:13→22:43)
[2016-07-01 05:33] LABS: MANUAL DIFF NEEDED? NO
[2016-07-01 05:39] LABS: BASO% 0.3 % (0.0-0.8); EOS# 0.14 X1000 (0.0-0.7); EOS% 1.5 % (0.0-10.0); HEMATOCRIT 29.2 % (42.0-52.0); HEMOGLOBIN 9.5 g/dL (14.0-18.0); IMM GRAN# 0.04 X1000 (0.0-0.04); IMM GRAN% 0.4 % (0.0-0.5); LYMPH# 1.24 X1000 (1.2-3.4); LYMPH% 13.7 % (20.5-51.1); MCH 26.8 PG (27-31); MCHC 32.5 g/dL (33-37); MCV 82.3 FL (81-99); MONO# 0.78 X1000 (0.11-0.59); MONO% 8.6 % (1.7-9.3); MPV 10.5 FL (7.4-10.4); NEUT% 75.5 % (42.2-75.2); PLT 234 X1000 (130-400); RBC 3.55 XMIL (4.7-6.1)
[2016-07-01 05:55] LABS: CALCIUM 7.9 mg/dL (8.8-10.2); POTASSIUM 4.3 mmol/L (3.5-5.1)
[2016-07-01] MEDS: HUMULIN R DOSE (PARKWAY) SUBQ SCH (06:34)
--- NOTE | 2016-07-01 07:39 | PROGRESS NOTE ---
DATE: 07/01/2016 SUBJECTIVE: Patient doing well. No major issues. He tolerated his amputation well. He has got his knee immobilizer placed. OBJECTIVE: Vital Signs: Patient is currently afebrile. His vital signs are stable. General: No acute distress. Cardiovascular: Regular rate and rhythm. Lungs: Grossly clear. Abdomen: Soft, nontender, nondistended. Extremities: Knee immobilizer in place on the right lower extremity. ASSESSMENT AND PLAN: A 61-year-old male status post right ivwwk-kzl-sitv amputation. 1. Status post right pxgxh-fit-abip amputation. At this time, we will continue with keeping the patient in his knee immobilizer. We will monitor his wound likely on postoperative day 3 to day 4. We will continue current treatment. 2. Multiple medical comorbidities currently being managed by the hospitalist service. cc: Dimas Cisse MD
[2016-07-01] MEDS ORDERED: D50W SYRINGE IV PRN ×2 (09:48→09:49)
[2016-07-01] MEDS ORDERED: HUMULIN R 100 UNIT in NS 99 ML IV SCH (10:00)
[2016-07-01] MEDS ORDERED: D5 NS 1,000 ML IV SCH (10:00)
[2016-07-01] MEDS ORDERED: TYLENOL PO PRN (10:05)
[2016-07-01] MEDS ORDERED: ZOFRAN IV PRN (10:05)
[2016-07-01] MEDS: COREG PO SCH (10:08)
[2016-07-01] MEDS: PERIDEX MT SCH ×2 (10:08→22:46)
--- NOTE | 2016-07-01 10:19 | PROGRESS NOTE ---
DATE: 07/01/2016 PRESENT ILLNESS: The patient is status post right xcqcm-vaj-bikz amputation performed by Dr. Cisse for a methicillin-resistant Staph aureus bacteremia, which originated most likely from the patient's gangrenous right foot. MEDICATIONS: The patient is on daptomycin; the dose has been modified because of the patient's renal failure. PHYSICAL EXAMINATION: Vital Signs: Temperature is 97.8 degrees, pulse 84, respirations 19, blood pressure 154/88. General: This is a somewhat ill-appearing, middle-aged male. He is in no acute distress. Lungs: Clear to auscultation. Cardiovascular: Regular heart rate. Abdomen: Soft and nontender. Extremities: The patient has an immobilizer around his right leg, for which he underwent a right below-knee amputation yesterday. MEDICATIONS: Patient is on daptomycin. I discontinued his statin drug because of daptomycin and that drug can interact and cause an increased risk of muscle toxicity. LAB AND X-RAY: The patient's CBC today shows a white count of 9060, hemoglobin 9.5, platelet count 234,000. Creatinine is 3. GFR is 26. The patient's blood is growing methicillin-resistant Staph aureus. Culture from the patient's right foot it is pending. ASSESSMENT AND PLAN: Patient has bacteremia most likely originating from a right foot gangrenous infection. Because of the patient's renal failure, I am going to go with daptomycin rather than vancomycin. Also, I have ordered an echocardiogram to look for the possibility of vegetations. I plan to treat the patient for at least 2 weeks because of his bacteremia and, if the patient's echocardiogram should show the presence of endocarditis, then he will need 6 weeks of treatment COMORBIDITIES: The patient's comorbidities include end-stage renal disease, mainly peripheral vascular disease. cc: Brendan Payne MD
[2016-07-01] MEDS: TRADJENTA PO SCH (10:52)
[2016-07-01] MEDS: HUMULIN R SUBQ SCH ×3 (10:52→22:45)
[2016-07-01] MEDS: NS 1,000 ML IV SCH ×2 (11:06→18:33)
--- NOTE | 2016-07-01 13:39 | PROGRESS NOTE ---
DATE: 07/01/2016 SUBJECTIVE: The patient reports feeling fine. Denies any fever, chills, nausea, vomiting. OBJECTIVE: Vital Signs: Temperature 98.6 degrees, heart rate 86, respiratory rate 18, blood pressure 159/86, O2 saturation 100% 2 L nasal cannula. General examination: This a 61-year-old, male, lying in bed in no acute distress. HEENT: Head is normocephalic, atraumatic. Anicteric sclerae and pale conjunctivae. Mucous membranes moist. Neck: Supple. No JVD noted. No carotid bruits. No lymphadenopathy. No thyromegaly. Cardiovascular exam: S1, S2 heard. No murmurs, gallops, or rubs. Regular rate and rhythm. Respiratory exam: Clear bilaterally to auscultation. No work of breathing or using accessory muscles. Abdomen: Soft, nontender to palpation. Bowel sounds present. No organomegaly. Extremities: Right below-the- knee amputation noted with dressing covering that extremity. Neurological exam: Patient alert and oriented x3. Able to move 4 extremities. Cranial nerves 2-12 grossly normal. LABORATORY DATA: White cell count 9.06, hemoglobin 9.5, hematocrit 29.2, platelets 234. BMP shows creatinine 3.0, BUN 36, glucose 116. ASSESSMENT AND PLAN: 1. Gangrenous foot status post right hipod-ttd-tujs amputation. Dr. Cisse is following this patient. He is planning to keep this patient until next Monday. We will follow his recommendations. 2. Diabetic ketoacidosis. Patient's condition has resolved completely. Right now he is receiving Levemir and sliding scale insulin. 3. Acute kidney injury. Creatinine has not changed too much. Yesterday it was 2.3 and today is 3.0 with similar GFR. Will continue with intravenous fluids. cc: Zac De La Cruz MD
[2016-07-01] MEDS: NORCO-10 PO PRN (14:42)
[2016-07-02] MEDS: MORPHINE IV PRN ×5 (01:00→18:14)
[2016-07-02] MEDS: NS 1,000 ML IV SCH ×4 (04:23→17:49)
[2016-07-02 06:44] LABS: BASO% 0.2 % (0.0-0.8); EOS# 0.08 X1000 (0.0-0.7); HEMOGLOBIN 9.2 g/dL (14.0-18.0); IMM GRAN# 0.06 X1000 (0.0-0.04); IMM GRAN% 0.7 % (0.0-0.5); LYMPH# 1.46 X1000 (1.2-3.4); LYMPH% 17.4 % (20.5-51.1); MANUAL DIFF NEEDED? YES; MCH 27.1 PG (27-31); MCHC 32.9 g/dL (33-37); MCV 82.4 FL (81-99); MONO# 0.92 X1000 (0.11-0.59); MPV 10.2 FL (7.4-10.4); NEUT% 69.7 % (42.2-75.2); PLT 271 X1000 (130-400)
[2016-07-02] MEDS: HUMULIN R SUBQ SCH ×4 (06:50→22:16)
[2016-07-02 07:07] LABS: CALCIUM 7.9 mg/dL (8.8-10.2); POTASSIUM 4.7 mmol/L (3.5-5.1)
[2016-07-02 07:21] LABS: BANDS 2 % (0-1); HYPOCHROM OCCASIONAL; LYMPHS 16 % (21-51); MONO 10 % (1-9)
[2016-07-02] MEDS ORDERED: INSULIN PEN NEEDLES ONE (07:33)
[2016-07-02] MEDS: NORCO-10 PO PRN (09:52)
[2016-07-02] MEDS: COREG PO SCH (09:52)
[2016-07-02] MEDS: PERIDEX MT SCH ×2 (09:53→21:51)
[2016-07-02] MEDS: LEVEMIR SUBQ SCH (09:53)
[2016-07-02] MEDS: TRADJENTA PO SCH (09:53)
[2016-07-02] MEDS ORDERED: CUBICIN (FOR INPATIENT USE) 500 MG in NS 100 ML IV SCH (11:00)
--- NOTE | 2016-07-02 11:54 | PROGRESS NOTE ---
DATE: 07/02/2016 SUBJECTIVE: Patient reports feeling fine. Denies any fever, chills. He reports that he is still complaining of pain in the right stump. OBJECTIVE: Vital Signs: Temperature 97.7 degrees, heart rate 92, respiratory rate 18, blood pressure 165/79, O2 sat 100% on 2 L nasal cannula. General Examination: This is a 61-year-old male, lying in bed, in no acute distress. HEENT: Head is normocephalic, atraumatic. Anicteric sclerae and pale conjunctivae. Mucous membranes moist. Neck: Supple. No JVD noted. No carotid bruits. No lymphadenopathy. No thyromegaly. Cardiovascular: S1, S2 heard. No murmurs, gallops, or rubs. Regular rate and rhythm. Respiratory: Clear bilaterally to auscultation. No work of breathing or using accessory muscles. Abdomen: Soft, nontender to palpation. Bowel sounds present. No organomegaly. Extremities: Right below-knee amputation noted with dressing covering the entire extremity. Dry and clean. Neurological: Patient alert and oriented x3. Able to move 4 extremities. Cranial nerves 2-12 grossly normal. LABORATORY DATA: White cell count 8.37, hemoglobin 9.2, hematocrit 28.0 and platelets 271,000. BMP remarkable for creatinine 2.8 and BUN 34. ASSESSMENT/PLAN: 1. Gangrene of foot status post right rkhju-ruo-ppnb amputation. Dr. Segovia from General Surgery following this patient. He plans to keep this patient until next Monday. We will follow recommendations. 2. Diabetic ketoacidosis. That condition is completely resolved. Patient is on Lantus and sliding scale insulin. 3. MRSA bacteremia. That infection is most likely originating from the right foot gangrenous infection and considering his renal dysfunction patient is on daptomycin so we are going to continue with the same medication and Dr. Payne has ordered an echocardiogram to rule out any presence of endocarditis. 4. Acute kidney injury. Creatinine is around the same. Today is 2.8 which is almost basically the same. We will continue with IV fluids. cc: Zac De La Cruz MD
--- NOTE | 2016-07-02 22:58 | PROGRESS NOTE ---
DATE: 07/02/2016 SUBJECTIVE: The patient has some pain in his right leg and phantom-type pain but otherwise is doing okay. OBJECTIVE: Vital signs: He is afebrile. Vital signs are stable. General: He is alert and oriented x3. No acute distress. Extremities: The right BKA immobilizer is intact. LABORATORY: White blood cell count 8, hemoglobin 9.2, hematocrit 28, platelet count 271,000. BUN 34, creatinine 2.8, glucose 164. ASSESSMENT/PLAN: 61-year-old male status post right below-knee amputation. He is to remain in the immobilizer through the weekend. Dr. Cisse will reassess on Monday. cc: Cordell Ritter MD
[2016-07-03] MEDS: NS 1,000 ML IV SCH ×2 (02:25→13:27)
[2016-07-03] MEDS: MORPHINE IV PRN (05:16)
[2016-07-03] MEDS: HUMULIN R SUBQ SCH ×4 (06:24→21:42)
[2016-07-03 06:28] LABS: BASO% 0.4 % (0.0-0.8); EOS% 1.4 % (0.0-10.0); HEMOGLOBIN 8.5 g/dL (14.0-18.0); IMM GRAN# 0.06 X1000 (0.0-0.04); IMM GRAN% 0.8 % (0.0-0.5); LYMPH# 1.48 X1000 (1.2-3.4); LYMPH% 20.5 % (20.5-51.1); MANUAL DIFF NEEDED? YES; MCV 82.2 FL (81-99); MONO# 0.79 X1000 (0.11-0.59); MPV 9.6 FL (7.4-10.4); NEUT% 65.9 % (42.2-75.2); PLT 295 X1000 (130-400); RBC 3.04 XMIL (4.7-6.1)
[2016-07-03 06:35] LABS: EOS 2 % (1-10); LYMPHS 22 % (21-51); MONO 4 % (1-9)
[2016-07-03 06:44] LABS: POTASSIUM 4.5 mmol/L (3.5-5.1)
[2016-07-03] MEDS: TRADJENTA PO SCH (09:28)
[2016-07-03] MEDS: COREG PO SCH ×2 (09:28→21:34)
[2016-07-03] MEDS: LEVEMIR SUBQ SCH (09:29)
[2016-07-03] MEDS: PERIDEX MT SCH ×3 (09:29→21:39)
[2016-07-03] MEDS ORDERED: PRINZIDE 10/12.5MG PO SCH (11:30)
[2016-07-03] MEDS: NORVASC PO SCH ×2 (11:47→21:34)
--- NOTE | 2016-07-03 11:55 | PROGRESS NOTE ---
DATE: 07/03/2016 SUBJECTIVE: Patient reports feeling fine, although he is still complaining of moderate pain in the right stump. No fever or chills noted OBJECTIVE: Vital Signs: Temperature 97.8 degrees, heart rate 88, respiratory rate 20, blood pressure of 188/92, O2 saturation 100% on 2 L nasal cannula. General Examination: This is a 61- year-old, male, lying in bed, in no acute distress. HEENT: Head is normocephalic and atraumatic. Anicteric sclerae and pale conjunctivae. Mucous membranes moist. Neck: Supple. No JVD noted. No carotid bruits. No lymphadenopathy. No thyromegaly. Cardiovascular Examination: S1 and S2 heard. No murmurs, gallops, or rubs. Regular rate and rhythm. Respiratory Examination: Clear bilaterally to auscultation. No work of breathing or using accessory muscles. Abdomen: Soft, nontender to palpation. Bowel sounds present. No organomegaly. Extremities: Right bvhvm-qeu-mxjf amputation noted with dressing covering the entire extremity, dry and clean. Neurological Examination: Patient is alert and oriented x3. Able to move 4 extremities. Cranial nerves 2-12 grossly normal. Laboratory Data: White cell count 7.21, hemoglobin 8.5, hematocrit 35, platelets 295,000. BMP shows creatinine 2.4 and BUN 13. ASSESSMENT AND PLAN: 1. Gangrene of the foot, status post right bydzh-jfh-xfuq amputation. Dr. Cisse from general surgery is following this patient. Apparently, he is planning to keep this patient until next Monday. We will follow his recommendations. 2. Diabetic ketoacidosis, resolved. Patient is on Lantus and sliding scale insulin. 3. Methicillin-resistant Staphylococcus aureus bacteremia. Dr. Payne is following this patient. He is on daptomycin because of renal function. 4. Acute kidney injury. Creatinine around the same today. Today's number is 2.4 and yesterday was 2.8 so it is good improvement. We will continue with intravenous fluids. 5. Uncontrolled hypertension. Blood pressure is high and because of the renal function, lisinopril has been discontinued so we are going to increase the doses of Coreg from 6.25 daily to 12.5 twice a day. Also, we are going to add amlodipine 5 mg twice a day to his current treatment. cc: Zac De La Cruz MD
[2016-07-03] MEDS: DILAUDID IV PRN ×2 (15:50→21:39)
[2016-07-03] MEDS: BENADRYL PO PRN ×2 (17:43→21:34)
[2016-07-04] MEDS: NS 1,000 ML IV SCH ×2 (01:40)
--- NOTE | 2016-07-04 06:09 | PROGRESS NOTE ---
DATE: 07/04/2016 SUBJECTIVE: Patient doing well. No major issues. OBJECTIVE: Vital Signs: Patient is currently afebrile. His vital signs have been stable. General Examination: No acute distress. Cardiovascular: Regular rate and rhythm. Lungs: Grossly clear. Abdomen: Soft, nontender, nondistended. Extremities: Removed amputation dressing. Reviewed amputation site. Incision is healing well. No active bleeding. No erythema noted. Replaced dressing and the knee immobilizer. ASSESSMENT AND PLAN: A 61-year-old, male status post right orzub-dfc-twze amputation. 1. Status post right fhdya-zcl-zrbz amputation. At this time, he is healing well. Continue with knee immobilizer and monitor. 2. Multiple medical comorbidities currently being managed by the hospitalist service. cc: Dimas Cisse MD
[2016-07-04 06:18] LABS: BASO% 0.5 % (0.0-0.8); EOS# 0.08 X1000 (0.0-0.7); EOS% 1.4 % (0.0-10.0); HEMATOCRIT 24.7 % (42.0-52.0); HEMOGLOBIN 8.3 g/dL (14.0-18.0); IMM GRAN# 0.06 X1000 (0.0-0.04); IMM GRAN% 1.1 % (0.0-0.5); LYMPH# 1.39 X1000 (1.2-3.4); LYMPH% 24.6 % (20.5-51.1); MANUAL DIFF NEEDED? YES; MCH 27.6 PG (27-31); MCHC 33.6 g/dL (33-37); MCV 82.1 FL (81-99); MONO# 0.69 X1000 (0.11-0.59); MONO% 12.2 % (1.7-9.3); MPV 9.6 FL (7.4-10.4); NEUT% 60.2 % (42.2-75.2); PLT 304 X1000 (130-400); RBC 3.01 XMIL (4.7-6.1)
[2016-07-04 06:36] LABS: BANDS 2 % (0-1); EOS 4 % (1-10); LYMPHS 20 % (21-51); MONO 10 % (1-9)
[2016-07-04] MEDS: HUMULIN R SUBQ SCH ×4 (06:43→22:01)
[2016-07-04 06:51] LABS: CALCIUM 8.2 mg/dL (8.8-10.2); POTASSIUM 4.5 mmol/L (3.5-5.1)
--- NOTE | 2016-07-04 10:17 | PROGRESS NOTE ---
DATE: 07/04/2016 PRESENT ILLNESS: The patient is status post lpdkj-ccm-fose amputation for a gangrenous right foot which was the origin for the patient's methicillin-resistant Staph aureus bacteremia. MEDICATIONS: The patient is on daptomycin. This will be day 2 of his treatment with the antibiotic. PHYSICAL EXAMINATION: Vital Signs: Temperature is 98.7 degrees, pulse 80, respirations 18, blood pressure 149/75. Generally: This is a somewhat ill-appearing, middle-aged male. He is in no acute distress. Lungs: Clear to auscultation. Cardiovascular: Regular heart rate. Abdomen: Soft and nontender. Extremities: Patient has a mobilizer around his right leg. Dr. Peng earlier looked at the patient's wound and his note says that it is healing well. MEDICATIONS: The patient is on daptomycin. I have increased the frequency to every 24 hours because the patient's creatinine has improved. LAB AND X-RAY: The patient's CBC today shows white count of 5640, hemoglobin 8.3, and platelet count 304,000 creatinine is 204,000. GFR 33. ASSESSMENT AND PLAN: The patient has a methicillin-resistant Staph aureus bacteremia originating from a gangrenous right foot. I plan to continue the patient's treatments for a total of 14 days. I have also ordered a CPK. Also, I plan to continue his daptomycin. I have ordered a CPK. COMORBIDITIES: The patient's comorbidities include the following: he has end- stage renal disease and peripheral vascular disease. cc: MD RHETT Boyle
[2016-07-04] MEDS: DILAUDID IV PRN ×2 (10:18→19:20)
[2016-07-04] MEDS: NEURONTIN PO SCH ×3 (10:20→22:58)
[2016-07-04] MEDS: TRADJENTA PO SCH (10:20)
[2016-07-04] MEDS: PERIDEX MT SCH ×2 (10:20→22:53)
[2016-07-04] MEDS: COREG PO SCH ×2 (10:20→22:52)
[2016-07-04] MEDS: NORVASC PO SCH ×2 (10:20→22:53)
[2016-07-04] MEDS: LEVEMIR SUBQ SCH (10:21)
[2016-07-04] MEDS: CUBICIN (FOR INPATIENT USE) 500 MG in NS 100 ML IV SCH (10:22)
--- NOTE | 2016-07-04 15:05 | PROGRESS NOTE ---
DATE: 07/04/2016 SUBJECTIVE: Patient reports feeling fine. He reports that the pain is much better controlled. No fever or chills noted OBJECTIVE: Vital Signs: Temperature 98.7 degrees, heart rate 80, respiratory rate 18, blood pressure 149/75, O2 saturation 98% on nasal cannula. General Examination: This is a 61-year-old male, looking older than his age, lying in bed, in no acute distress. HEENT: Head is normocephalic, atraumatic. Anicteric sclerae. Pale conjunctivae. Mucous membranes moist. Neck: Supple. No JVD noted. No carotid bruits. No lymphadenopathy. No thyromegaly. Cardiovascular: S1, S2 heard. No murmurs, gallops, or rubs. Regular rate and rhythm. Respiratory: Clear bilaterally to auscultation. No work of breathing or using accessory muscles. Abdomen: Soft. Nontender to palpation. Bowel sounds present. No organomegaly. Extremities: Right tujgz-ipx-pyom amputation noted with dressing covering almost the entire extremity, dry and clean. Neurological: Patient alert and oriented x3. Able to move 4 extremities. LABORATORY DATA: White cell count 5.64, hemoglobin 8.3, hematocrit 24.7, platelets 304,000. BMP shows creatinine 2.4, BUN 30, GFR 33 with CK of 114. ASSESSMENT AND PLAN: 1. Gangrene of the foot status post right lmkmf-gqm-pyli amputation. Dr. Cisse from general surgery is following this patient. We will keep this patient in the hospital until he is cleared by general surgery. 2. Methicillin-resistant Staphylococcus aureus bacteremia. Dr. Payne is following this patient. He is currently on daptomycin because of the renal function. Dose of that medication has been adapted to the new renal function this patient has. We have ordered 2 blood cultures and when we see that this patient has a negative blood culture we can come order a PICC line because Dr. Payne, as we mentioned before, is planning to keep him on 2 weeks of antibiotics. 3. Diabetic ketoacidosis, resolved. 4. Uncontrolled hypertension. Blood pressure has been a little bit better in the range of 150s and 160s but not completely back to her current treatment. In any case, we are going to increase the dose of Coreg to 25 b.i.d. and we will continue with amlodipine 5 mg b.i.d. as well. cc: Zac De La Cruz MD
[2016-07-04] MEDS ORDERED: LASIX IV ONE (16:00)
[2016-07-04] MEDS: NORCO-10 PO PRN (22:58)
[2016-07-04] MEDS: BENADRYL PO PRN (23:03)
--- NOTE | 2016-07-05 06:10 | PROGRESS NOTE ---
DATE: 07/05/2016 SUBJECTIVE: Patient doing well. No major issues. OBJECTIVE: Vital Signs: Patient is currently afebrile. His vital signs have been stable. General: No acute distress. Cardiovascular: Regular rate and rhythm. Lungs: Grossly clear. Abdomen: Soft, nontender, nondistended. Extremities: He has an amputation knee immobilizer in place to the right lower extremity. ASSESSMENT AND PLAN: A 61-year-old male status post right ynfdn-byc-jecp amputation. 1. Status post right need avthm-uvn-msqd amputation. At this time, patient is clinically doing well from a surgical point of view. Can be discharged with his knee immobilizer. He needs to have followup with the prosthesis company ([employer]). They can fit him and monitoring him down the road for potential prosthesis. 2. Multiple medical comorbidities. Currently being managed by the hospitalist service. We will defer further management to them. cc: Dimas Cisse MD
[2016-07-05 06:21] LABS: MANUAL DIFF NEEDED? NO
[2016-07-05 06:29] LABS: BASO% 0.5 % (0.0-0.8); EOS# 0.09 X1000 (0.0-0.7); EOS% 1.5 % (0.0-10.0); HEMATOCRIT 24.7 % (42.0-52.0); HEMOGLOBIN 8.2 g/dL (14.0-18.0); IMM GRAN# 0.05 X1000 (0.0-0.04); IMM GRAN% 0.9 % (0.0-0.5); LYMPH# 1.56 X1000 (1.2-3.4); LYMPH% 26.8 % (20.5-51.1); MCH 27.2 PG (27-31); MCHC 33.2 g/dL (33-37); MCV 82.1 FL (81-99); MONO# 0.78 X1000 (0.11-0.59); MONO% 13.4 % (1.7-9.3); MPV 9.5 FL (7.4-10.4); NEUT% 56.9 % (42.2-75.2); PLT 342 X1000 (130-400); RBC 3.01 XMIL (4.7-6.1)
[2016-07-05 06:51] LABS: CALCIUM 8.3 mg/dL (8.8-10.2); POTASSIUM 4.4 mmol/L (3.5-5.1)
--- NOTE | 2016-07-05 09:20 | PROGRESS NOTE ---
DATE: 07/05/2016 PRESENT ILLNESS: Patient has a methicillin-resistant Staph aureus bacteremia which originated from a gangrenous right foot, which subsequently has been amputated. MEDICATIONS: This is day 3 of treatment with daptomycin. PHYSICAL EXAMINATION: Vital Signs: Temperature is 97.9, pulse 70, respirations 18, blood pressure 167/85. Generally: This is a somewhat ill-appearing, elderly male who is in no acute distress. Lungs: Clear to auscultation. Cardiovascular: Heart rate is regular. Abdomen: Soft and nontender. Extremities: The right leg is in an immobilizer. As mentioned above, this is day 3 of treatment with daptomycin. LAB AND X-RAY: CBC for today shows a white count of 5820, hemoglobin 8.2 and platelet count 342,000. Creatinine is 2.4. GFR is 33. The CPK is 114. ASSESSMENT AND PLAN: Patient has a methicillin-resistant Staph aureus bacteremia, originating from a gangrenous right foot. The patient has had 3 days of daptomycin therapy. I plan to give him 11 more days. COMORBIDITIES: Include end-stage renal disease, and peripheral vascular disease. cc: Brendan Payne MD
[2016-07-05] MEDS: DILAUDID IV PRN ×3 (10:59→21:15)
[2016-07-05] MEDS: LEVEMIR SUBQ SCH (11:03)
[2016-07-05] MEDS: PERIDEX MT SCH ×2 (11:03→20:55)
[2016-07-05] MEDS: NORVASC PO SCH ×2 (11:04→20:55)
[2016-07-05] MEDS: COREG PO SCH ×2 (11:04→20:54)
[2016-07-05] MEDS: NEURONTIN PO SCH ×3 (11:05→16:52)
[2016-07-05] MEDS: TRADJENTA PO SCH (11:05)
[2016-07-05] MEDS: HUMULIN R SUBQ SCH ×3 (12:36→21:14)
[2016-07-05] MEDS: CUBICIN (FOR INPATIENT USE) 500 MG in NS 100 ML IV SCH (12:36)
--- NOTE | 2016-07-05 14:10 | PROGRESS NOTE ---
DATE: 07/05/2016 SUBJECTIVE: The patient states that he is feeling better. He is still complaining of right lower extremity pain. No fever. No chills. He is tolerating p.o. OBJECTIVE: Vital Signs: Temperature 97.6 degrees, pulse 89, respiratory rate 18, blood pressure 163/78, O2 oxygen saturation 96 on 2 L of nasal cannula. HEENT: Head normocephalic. No trauma. PERRLA. Neck: Supple. No JVD. No masses. Central trachea. Cardiovascular: RRR. No murmurs. Chest: Clear to auscultation. No wheezing. No rales. Abdomen: Soft, nontender, nondistended. No hepatosplenomegaly. Extremities: He has a right cjzha-qhl-mzxy amputation with a dressing that looks clean, dry. Neurological: Patient is alert and oriented x3. He moves all 4 extremities. LABORATORY: WBC 5.8, hemoglobin 8.2, hematocrit 24.7, platelets 342,000. Sodium 139, potassium 4.4, chloride 107, bicarbonate 21, BUN 32, creatinine 2.4. Glucose 158. Calcium 8.3. ASSESSMENT AND PLAN: 1. Gangrene of the right foot status post right qxpun-mxz-mltw amputation. Surgery Department is following this patient. We will continue following their recommendations. 2. MRSA a Staphylococcus bacteremia likely secondary to his diabetic food. Dr. Payne is following this patient. He is currently on daptomycin. This is day #3 and the plan is to continue for 11 more days. Cultures that were taken yesterday so far negative. 3. Diabetic ketoacidosis resolved. 4. Uncontrolled hypertension. Blood pressure has been in the 150s. I will add hydralazine 10 mg p.o. t.i.d. and I will readjust the dose accordingly. cc: Art Heredia MD
[2016-07-05] MEDS ORDERED: APRESOLINE PO SCH (17:00)
[2016-07-06] MEDS: NORCO-10 PO PRN ×2 (06:12→19:15)
[2016-07-06] MEDS: HUMULIN R SUBQ SCH ×6 (06:13→21:23)
--- NOTE | 2016-07-06 06:32 | PROGRESS NOTE ---
DATE: 07/06/2016 SUBJECTIVE: Patient doing well. No major issues. OBJECTIVE: Vital Signs: Patient is currently afebrile. His vital signs have been stable. General Examination: No acute distress. Cardiovascular: Regular rate and rhythm. Lungs: Grossly clear. Abdomen: Soft, nontender, nondistended. Extremities: A knee immobilizer in place on the right lower extremity. ASSESSMENT AND PLAN: A 61-year-old, male status post right below-knee amputation. 1. Status post right nexnt-nzh-bsby amputation. At this time, patient is clinically stable enough to be discharged from a surgical point of view and follow up with me in 1-2 weeks. He is a knee immobilizer in place. Will need to follow up with the prosthesis company. 2. Multiple medical comorbidities currently being managed by the hospitalist service. cc: Dimas Cisse MD
[2016-07-06 06:54] LABS: MANUAL DIFF NEEDED? NO
[2016-07-06 06:57] LABS: BASO% 0.5 % (0.0-0.8); EOS% 1.3 % (0.0-10.0); HEMATOCRIT 26.3 % (42.0-52.0); HEMOGLOBIN 8.6 g/dL (14.0-18.0); IMM GRAN# 0.08 X1000 (0.0-0.04); IMM GRAN% 1.1 % (0.0-0.5); LYMPH# 1.66 X1000 (1.2-3.4); LYMPH% 21.9 % (20.5-51.1); MCH 27.1 PG (27-31); MCHC 32.7 g/dL (33-37); MONO# 0.58 X1000 (0.11-0.59); MONO% 7.6 % (1.7-9.3); MPV 9.5 FL (7.4-10.4); NEUT% 67.6 % (42.2-75.2); PLT 380 X1000 (130-400); RBC 3.17 XMIL (4.7-6.1)
[2016-07-06 07:15] LABS: CALCIUM 8.6 mg/dL (8.8-10.2); POTASSIUM 4.8 mmol/L (3.5-5.1)
[2016-07-06] MEDS: DILAUDID IV PRN (07:44)
[2016-07-06] MEDS: NEURONTIN PO SCH ×3 (10:13→17:34)
[2016-07-06] MEDS: TRADJENTA PO SCH (10:14)
[2016-07-06] MEDS: NORVASC PO SCH ×2 (10:14→20:34)
[2016-07-06] MEDS: COREG PO SCH ×2 (10:14→20:35)
[2016-07-06] MEDS: LEVEMIR SUBQ SCH (10:15)
[2016-07-06] MEDS: PERIDEX MT SCH ×2 (10:20→20:34)
[2016-07-06] MEDS: APRESOLINE PO SCH ×3 (10:21→17:34)
[2016-07-06] MEDS: CUBICIN (FOR INPATIENT USE) 500 MG in NS 100 ML IV SCH (11:20)
--- NOTE | 2016-07-06 15:17 | PROGRESS NOTE ---
DATE: 07/06/2016 SUBJECTIVE: This patient states that he is feeling better. He is complaining of right lower extremity pain. No fever. No chills. He is tolerating p.o. OBJECTIVE: Vital Signs: Temperature 98.5 degrees, pulse 86, respiratory rate 18, blood pressure 152/74, oxygen saturation 94% on 2 L of nasal cannula. HEENT: Head normocephalic. No trauma. PERRLA. Neck: Supple. No JVD. No masses. Central trachea. Cardiovascular: RRR. No murmurs. No gallops. No rubs. Chest: Clear to auscultation. No wheezing. No rales. Abdomen: Soft, nontender, nondistended. No hepatosplenomegaly. Extremities: He has a right BKA with a dressing that looks clean and dry. Neurological: Patient is alert. He moves all 4 extremities. LABORATORY: WBC 7.5, hemoglobin 8.6, hematocrit 26.3, platelets 380,000. Sodium 137, potassium 4.8, chloride 103, bicarbonate 22, BUN 44, creatinine 2.6, glucose 243. ASSESSMENT AND PLAN: 1. Gangrene of the right foot is status post right aqfye-bxb-wcru amputation. Surgery department is following this patient. They state that he is okay to go to a rehab center, pending placement. The manager social media is working on this. 2. Methicillin-resistant Staphylococcus aureus bacteremia. Likely secondary to diabetic foot infection. Dr. Payne is following this patient. He is currently on daptomycin. This is day #4 and his plan is to continue this for 10 more days. Blood cultures taken a couple days ago are negative. 3. Diabetic ketoacidosis, resolved. 4. Uncontrolled hypertension. Blood pressure has been in the 150s to 160s. I will increase the dose of hydralazine from 10 t.i.d. to 25 t.i.d. I will continue to monitor. 5. Type 2 diabetes. The blood sugar today is a little bit high. I will increase the dose of Levemir from 20 to 24. Will monitor. 6. This patient is ready to be discharged. benzene worker is trying to get placement for this patient in a rehab center. cc: Art Heredia MD
--- NOTE | 2016-07-06 16:59 | PROGRESS NOTE ---
DATE: 07/06/2016 PRESENT ILLNESS: The patient has a methicillin-resistant Staph aureus bacteremia which originated from his infected right foot. The patient has subsequently undergone a right kzddn-rje-vdoz amputation. MEDICATIONS: This is day 4 of treatment with daptomycin. The patient is tolerating the antibiotic well. PHYSICAL EXAMINATION: Vital Signs: Temperature is 97.4 degrees, pulse 80, respirations 20, blood pressure 158/74. Generally: This is a somewhat ill-appearing middle-aged male who is in no acute distress. Lungs: Clear to auscultation. Cardiovascular: Heart rate is regular. I did not hear a murmur. Abdomen: Soft and nontender. Extremities: The right leg is in an immobilizer. LABORATORY AND X-RAY STUDIES: There is no new x-ray. The CBC for today showed a white count of 7590, hemoglobin 8.6 and platelet count 380,000. Repeat blood cultures are sterile. The patient's creatinine is 2.6. GFR is 30. ASSESSMENT AND PLAN: 1. I plan to continue daptomycin for 10 more days of treatment to complete a 2-week treatment course. 2. Comorbidities include end-stage renal disease and peripheral vascular disease. cc: Brendan Payne MD
[2016-07-06] MEDS ORDERED: LASIX IV ONE (17:03)
[2016-07-07] MEDS: DILAUDID IV PRN ×2 (00:31→07:56)
--- NOTE | 2016-07-07 06:11 | EKG Report ---
Test Performed on : 07/06/2016 6:33:19 PM Test Reason : SOB Blood Pressure : / mmHG Vent. Rate : 080 BPM Atrial Rate : 080 BPM P-R Int : 130 ms QRS Dur : 076 ms QT Int : 360 ms P-R-T Axes : 050 035 044 degrees QTc Int : 415 ms Normal sinus rhythm. Nonspecific T wave abnormality Abnormal ECG When compared with ECG of 28-JUN-2016 00:23, Nonspecific T wave abnormality no longer evident in Anterior leads Confirmed by Luke Milligan MD ([id number]) on 07/07/2016 12:09:52 PM
[2016-07-07] MEDS: HUMULIN R SUBQ SCH ×4 (06:28→22:00)
[2016-07-07] MEDS ORDERED: INSULIN PEN NEEDLES ONE (06:46)
[2016-07-07 06:55] LABS: MANUAL DIFF NEEDED? NO
[2016-07-07 07:11] LABS: BASO% 0.4 % (0.0-0.8); EOS% 1.3 % (0.0-10.0); HEMATOCRIT 25.8 % (42.0-52.0); HEMOGLOBIN 8.7 g/dL (14.0-18.0); IMM GRAN# 0.04 X1000 (0.0-0.04); IMM GRAN% 0.5 % (0.0-0.5); LYMPH# 1.65 X1000 (1.2-3.4); LYMPH% 21.3 % (20.5-51.1); MCH 27.9 PG (27-31); MCHC 33.7 g/dL (33-37); MCV 82.7 FL (81-99); MONO% 7.8 % (1.7-9.3); MPV 9.5 FL (7.4-10.4); NEUT% 68.7 % (42.2-75.2); PLT 371 X1000 (130-400); RBC 3.12 XMIL (4.7-6.1)
[2016-07-07 07:22] LABS: CALCIUM 8.6 mg/dL (8.8-10.2); POTASSIUM 4.7 mmol/L (3.5-5.1)
--- NOTE | 2016-07-07 08:04 | Diag Imaging Result Document ---
PROCEDURE NAME: CHEST-2 VIEWS - 07/06/2016 FRONTAL AND LATERAL CHEST, TWO VIEWS: COMPARISON: 06/28/2016. FINDINGS: There are small to moderate sized bilateral pleural effusions. The heart is enlarged. There is vascular distention. Atelectasis and or infiltrates in each lower lobe. IMPRESSION: Interval worsening with bilateral pleural effusions and basilar atelectasis/infiltrates as well as pulmonary edema.
[2016-07-07] MEDS: PERIDEX MT SCH ×2 (09:54→22:54)
[2016-07-07] MEDS: NEURONTIN PO SCH ×3 (09:54→18:39)
[2016-07-07] MEDS: COREG PO SCH (09:54)
[2016-07-07] MEDS: APRESOLINE PO SCH ×3 (09:54→18:39)
[2016-07-07] MEDS: LEVEMIR SUBQ SCH (09:54)
[2016-07-07] MEDS: NORVASC PO SCH (09:54)
[2016-07-07] MEDS: TRADJENTA PO SCH (10:01)
[2016-07-07 11:21] LABS: INR 0.92; PROTIME 9.6 Seconds (9.2-11.7); PTT 25.2 Seconds (22.0-36.0)
[2016-07-07] MEDS ORDERED: DULCOLAX PR ONE ×2 (11:30→11:31)
[2016-07-07] MEDS ORDERED: MIRALAX PO ONE (11:31)
[2016-07-07] MEDS: CUBICIN (FOR INPATIENT USE) 500 MG in NS 100 ML IV SCH (11:54)
[2016-07-07] MEDS: MIRALAX PO SCH (12:13)
[2016-07-07] MEDS ORDERED: NS 250 ML ONE (13:02)
--- NOTE | 2016-07-07 15:47 | DISCHARGE SUMMARY ---
ADMISSION DATE: 06/28/2016 DISCHARGE DATE: 07/07/2016 CONSULTATIONS: 1. Dr. Brendan Payne with Infectious Disease. 2. Dr. Dimas Cisse with general surgery. PERTINENT PROCEDURES: 1. Head CT showed no hemorrhage, no injury, chronic microvascular ischemic changes. 2. Renal ultrasound was negative. 3. Left foot x-ray showed no sign of osteomyelitis. 4. Right foot x-ray showed no evidence of osteomyelitis. No other definite acute osseous abnormality. 5. Echocardiogram showed an EF of 50% with normal wall motion. 6. Right gzzgx-ybg-xvjt amputation performed by Dr. Dimas Cisse. DISCHARGE DIAGNOSES: 1. Ischemic right lower extremity status post right utmoa-hrw-xnhl amputation with Dr. Dimas Cisse. He will follow up with Dr. Cisse in 1-2 weeks. He has a knee immobilizer in place and will need to follow up with a prosthesis company. 2. Methicillin-resistant Staphylococcus aureus bacteremia which originated from infected right foot. Now status post right owhbf-wbd-slbw amputation. The patient will continue on daptomycin IV for 10 more days to complete a 2 week treatment course per Dr. Payne with Infectious Disease. 3. Diabetic ketoacidosis resolved. 4. Uncontrolled hypertension. Patient's medications have been titrated up. Stable. 5. Type 2 diabetes. His Levemir has been increased. HOSPITAL COURSE: Briefly, Mr. Figueroa is a 61-year-old, male, who has a past medical history of type 2 diabetes, hypertension, hyperlipidemia, reported to the [place] ER with complaint of increased blood sugar, increased weakness, polyuria, polydipsia, and polyphagia. Laboratory data in the ED showed a white count of 13, pCO2 on ABG was 29 and sodium was 127. Had a BUN of 33 and a creatinine of 2.2. Blood glucose was 234. Urinalysis had 2+ ketones. The patient was admitted initially to [facility] with type 2 diabetes uncontrolled with hyperglycemia. Dr. Cisse was also consulted for a possible dry gangrene in the patient's right lower extremity. However, the patient did go into DKA and was admitted to the ICU. He was then transferred to [facility] for a right lkiug-nhq-bnyo amputation with Dr. Cisse his DKA had resolved. Dr. Brendan Payne was also consulted because the patient had MRSA bacteremia. The patient had his amputation on 06/30/2016. Patient has worked with physical therapy. Medical Staff Physician was consulted for rehab placement. He has been accepted to [facility]. VITAL SIGNS AT TIME OF HIS DISCHARGE: Temperature is 97.7 degrees, heart rate 74, respirations 18, blood pressure 151/80. O2 is 95% on room air. The patient will be discharged with a PICC line as well as IV antibiotics with daptomycin. DISCHARGE DIET: Mechanical soft. DISCHARGE MEDICATIONS: Will be as per Dr. Swan. Please see MAY. FOLLOWUP: Mr. Figueroa is being discharged to rehab where he will continue to complete a 10 day course of IV daptomycin as per Dr. Brendan Payne. The patient will follow up with Dr. Dimas Cisse as well as a primary care physician of the patient's choosing. Patient can return to the ED for any worsening of symptoms. DISCHARGE TIME: 30 minutes. Dictated by SHALONDA Rojas for Art Heredia MD cc: Art Heredia MD
[2016-07-07] MEDS ORDERED: ATROPINE SYRINGE ONE (18:50)
[2016-07-07] MEDS ORDERED: NS ONE (18:50)
[2016-07-07] MEDS ORDERED: NARCAN ONE (18:50)
[2016-07-07] MEDS ORDERED: CALCIUM CHLORIDE SYRINGE ONE (18:50)
[2016-07-07] MEDS ORDERED: SODIUM BICARBONATE 8.4% ONE (18:50)
[2016-07-07] MEDS ORDERED: EPINEPHRINE SYRINGE ONE (18:50)
[2016-07-07] MEDS ORDERED: QUELICIN ONE (19:06)
[2016-07-07] MEDS ORDERED: VERSED ONE (19:06)
[2016-07-07] MEDS ORDERED: AMIDATE ONE (19:06)
[2016-07-07] MEDS ORDERED: NORCURON ONE (19:06)
[2016-07-07 19:46] LABS: MANUAL DIFF NEEDED? NO
[2016-07-07] MEDS ORDERED: LASIX IV ONE (19:46)
[2016-07-07 19:48] LABS: BASO% 0.3 % (0.0-0.8); EOS# 0.05 X1000 (0.0-0.7); EOS% 0.5 % (0.0-10.0); HEMATOCRIT 25.3 % (42.0-52.0); HEMOGLOBIN 8.1 g/dL (14.0-18.0); IMM GRAN# 0.07 X1000 (0.0-0.04); IMM GRAN% 0.7 % (0.0-0.5); LYMPH# 3.01 X1000 (1.2-3.4); LYMPH% 28.2 % (20.5-51.1); MCH 27.1 PG (27-31); MCV 84.6 FL (81-99); MONO# 0.39 X1000 (0.11-0.59); MONO% 3.7 % (1.7-9.3); MPV 9.5 FL (7.4-10.4); NEUT% 66.6 % (42.2-75.2); PLT 362 X1000 (130-400); RBC 2.99 XMIL (4.7-6.1)
[2016-07-07] MEDS ORDERED: LASIX ONE (19:50)
[2016-07-07 19:52] LABS: ALLEN TEST YES; BE -8.8 mmoll (-3.0-3.0); BLOOD TYPE ARTERIAL; DRAW SITE R RADIAL; METHB 1.6 % (0.0-1.5); O2(CT) 12.8 mL/dL (15.0-23.0); PO2(98.6) 101 mmHg (60-100); SAMPLE BLOOD; SAO2 98.2 % (95.0-100.0); THB 9.4 g/dL (11.5-17.4)
[2016-07-07 19:54] LABS: MODALITY AMBU BAG
[2016-07-07 19:55] LABS: PCO2(98.6) 57 mmHg (35-45); pH(98.6) 7.15 (7.35-7.45)
[2016-07-07 19:59] LABS: ALBUMIN 2.1 g/dL (3.5-5.0); CALCIUM 7.7 mg/dL (8.8-10.2); TOTAL BILIRUBIN 0.19 mg/dL (0.20-1.00); TOTAL PROTEIN 5.4 g/dL (6.3-8.3)
[2016-07-07] MEDS: LASIX 100 MG in NS 90 ML IV SCH (21:14)
[2016-07-07] MEDS: SODIUM CHLORIDE 0.9% INJ SCH (22:54)
[2016-07-07] MEDS: HEPARIN SUBQ SCH (22:54)
[2016-07-07] MEDS: PROTONIX IV SCH (22:54)
[2016-07-07] MEDS: DUONEB (A & A) INH SCH (23:29)
[2016-07-08] MEDS: NORVASC PO SCH ×3 (00:19→22:15)
[2016-07-08] MEDS: COREG PO SCH ×3 (00:19→22:16)
[2016-07-08] MEDS ORDERED: DILAUDID IV ONE (01:35)
[2016-07-08] MEDS: DIPRIVAN 1% 1,000 MG/100 ML BOTTLE IV SCH ×5 (01:56→20:15)
[2016-07-08] MEDS: NITROGLYCERIN TOP SCH ×4 (01:58→20:05)
[2016-07-08] MEDS: DUONEB (A & A) INH SCH ×6 (03:35→23:01)
[2016-07-08 04:34] LABS: ALLEN TEST YES; BE 5.6 mmoll (-3.0-3.0); BLOOD TYPE ARTERIAL; DRAW SITE R RADIAL; METHB 1.8 % (0.0-1.5); O2(CT) 11.8 mL/dL (15.0-23.0); PCO2(98.6) 41 mmHg (35-45); PO2(98.6) 204 mmHg (60-100); SAMPLE BLOOD; SAO2 99.9 % (95.0-100.0); SRATE 15 BPM; THB 8.3 g/dL (11.5-17.4); TVOL 450 mL; pH(98.6) 7.47 (7.35-7.45)
[2016-07-08 04:36] LABS: MODALITY VENTILATOR
[2016-07-08 05:39] LABS: MANUAL DIFF NEEDED? NO
[2016-07-08 05:50] LABS: BASO% 0.1 % (0.0-0.8); EOS# 0.01 X1000 (0.0-0.7); EOS% 0.1 % (0.0-10.0); HEMATOCRIT 23.8 % (42.0-52.0); HEMOGLOBIN 7.9 g/dL (14.0-18.0); IMM GRAN# 0.03 X1000 (0.0-0.04); IMM GRAN% 0.3 % (0.0-0.5); LYMPH# 1.12 X1000 (1.2-3.4); LYMPH% 10.3 % (20.5-51.1); MCH 27.2 PG (27-31); MCHC 33.2 g/dL (33-37); MCV 82.1 FL (81-99); MONO# 0.52 X1000 (0.11-0.59); MONO% 4.8 % (1.7-9.3); MPV 9.6 FL (7.4-10.4); NEUT% 84.4 % (42.2-75.2); PLT 383 X1000 (130-400)
[2016-07-08 06:05] LABS: ALBUMIN 2.3 g/dL (3.5-5.0); CALCIUM 8.6 mg/dL (8.8-10.2); POTASSIUM 4.3 mmol/L (3.5-5.1); TOTAL BILIRUBIN 0.27 mg/dL (0.20-1.00); TOTAL PROTEIN 5.6 g/dL (6.3-8.3)
[2016-07-08] MEDS: HUMULIN R SUBQ SCH ×3 (06:11→16:13)
--- NOTE | 2016-07-08 06:35 | Diag Imaging Result Document ---
PROCEDURE NAME: CHEST-1 VIEW - 07/07/2016 AP SUPINE CHEST: COMPARISON: Comparison is made to the chest and abdomen performed earlier. FINDINGS: There is an endotracheal tube near the thoracic inlet. It should probably be advanced at least 4-5 cm. There are bilateral infiltrates with pulmonary edema and cardiomegaly similar to the prior studies. No change in the nasogastric tube or left-sided PICC line. IMPRESSION: Endotracheal tube should probably be advanced.
--- NOTE | 2016-07-08 06:45 | Diag Imaging Result Document ---
PROCEDURE NAME: CHEST-2 VIEWS - 07/07/2016 FRONTAL AND LATERAL CHEST, TWO VIEWS: COMPARISON: 07/06/2016. FINDINGS: Interval placement of a left-sided PICC line. The tip overlies the distal superior vena cava. There are increased interstitial markings bilaterally with cardiomegaly and small effusions. The chest is quite similar to that of the prior exam. IMPRESSION: Interval placement of a left-sided PICC line, otherwise stable chest.
--- NOTE | 2016-07-08 06:47 | Diag Imaging Result Document ---
PROCEDURE NAME: CHEST/ABD TUBE PLACEMENT - 07/07/2016 PORTABLE CHEST, ABDOMEN: COMPARISON: Portable chest performed earlier. FINDINGS: Interval placement of a nasogastric tube. This overlies the esophagus and stomach. The stomach is distended with air. No endotracheal tube. IMPRESSION: Nasogastric tube in good position. Endotracheal tube is not identified.
--- NOTE | 2016-07-08 07:43 | Diag Imaging Result Document ---
PROCEDURE NAME: CHEST-PORTABLE - 07/08/2016 PORTABLE SUPINE CHEST: COMPARISON: 07/07/2016. FINDINGS: A nasogastric tube overlies the esophagus and stomach. Endotracheal tube is in good position. No change in the left-sided PICC line. There are diffuse and dense bilateral infiltrates. I believe there are small effusions. The heart is not enlarged. The overall appearance of the chest is quite similar to that of the prior exam. IMPRESSION: Stable chest.
[2016-07-08 08:00] LABS: URINE SOURCE CATH
[2016-07-08 08:05] LABS: BILIRUBIN URINE NEGATIVE (NEGATIVE); BLOOD URINE SMALL (NEGATIVE); COLOR ORANGE; GLUCOSE URINE 300 mg/dL (NEGATIVE); LEUKOCYTES URINE NEGATIVE (NEGATIVE); NITRITE URINE NEGATIVE (NEGATIVE); PH URINE 5.5; PROTEIN URINE 100 mg/dL (NEGATIVE); SP GRAVITY URINE 1.013; TURBIDITY URINE HAZY (CLEAR); URINE MICRO REVIEW NEEDED? YES; UROBILINOGEN URINE NORMAL (NORMAL)
[2016-07-08 08:32] LABS: UR EPITHELIAL CELLS <10 /HPF (<10); URINE BACTERIA 1+ /HPF; URINE CULTURE NEEDED? YES; URINE RBC <10 /HPF (<10); URINE WBC TNTC /HPF (<10)
[2016-07-08 08:38] LABS: URINE CASTS NONE SEEN; URINE CRYSTALS NONE SEEN; URINE SMALL ROUND CELLS NONE SEEN
[2016-07-08] MEDS: PERIDEX MT SCH ×2 (08:41→22:44)
[2016-07-08] MEDS: NEURONTIN PO SCH ×3 (08:41→16:12)
[2016-07-08] MEDS: APRESOLINE PO SCH ×3 (08:41→16:12)
[2016-07-08] MEDS: MIRALAX PO SCH (08:41)
[2016-07-08] MEDS: HEPARIN SUBQ SCH ×2 (08:43→22:16)
[2016-07-08] MEDS ORDERED: ZOSYN 3.375 GM/NS 3.375 GM/50 ML IVPB IV SCH (09:00)
--- NOTE | 2016-07-08 09:14 | Diag Imaging Result Document ---
PROCEDURE NAME: ABDOMEN/PELVIS W/O CONTRAST - 07/07/2016 CT ABDOMEN AND PELVIS WITHOUT CONTRAST: COMPARISON: None available. FINDINGS: There are bilateral gmmerpzs-jm-aktkm size pleural effusions with bibasilar atelectasis. There is a large calcified granuloma in the medial right lower lobe and a smaller calcified granuloma in the right middle lobe. There is a large calcified subcarinal lymph node indicating prior granulomatous disease. The heart is not enlarged. There are several calcified granulomata in the liver and the spleen. There appear to be a few punctate stones in the gallbladder lumen. Although questionable, the gallbladder wall may be mildly thickened. There is no surrounding inflammatory stranding, however. Please correlate clinically to evaluate for cholecystitis. This thickening is, perhaps, more likely due to the patient's fluid status. An NG tube is in the lumen of the stomach. The stomach is mildly distended. There is nodular thickening of both adrenal glands. Although nonspecific, it statistically most likely represents adrenal adenomas. The appendix is normal. There is a fair amount of stool in the colon and rectum suggesting possible constipation. There is diffuse mesenteric and surrounding soft tissue anasarca. The urinary bladder is nondistended and there is a Reis catheter in place. There is urinary bladder wall thickening. However, this is likely due to incomplete distention. There is no evidence of bowel obstruction. The remainder of the solid viscera of the abdomen and pelvis and the remainder of the GI tract is essentially unremarkable. IMPRESSION: 1. Suggestion of a few punctate stones in the gallbladder lumen and gallbladder wall thickening that is mild. This thickening certainly may be due to the patient's overall fluid status as there are no inflammatory changes identified around the gallbladder. Please correlate clinically. 2. Mildly distended stomach. 3. Generalized anasarca. 4. Bilateral uqfyxqpr-he-qskuw size pleural effusions and bibasilar atelectasis. 5. Suggestion of constipation. 6. Other incidental/nonacute findings detailed above.
--- NOTE | 2016-07-08 10:08 | Diag Imaging Result Document ---
PROCEDURE NAME: HEAD W/O CONTRAST - 07/08/2016 CT BRAIN WITHOUT CONTRAST: COMPARISON: 06/27/2016. FINDINGS: No parenchymal hemorrhage. No epidural or subdural hematoma. No subarachnoid hemorrhage. No mass identified on this noncontrasted exam. There are chronic microvascular ischemic changes. No hydrocephalus. No sinus opacification. IMPRESSION: 1. No hemorrhage. 2. Chronic microvascular ischemic changes similar to the prior exam. A preliminary report was given at 9:56 a.m..
--- NOTE | 2016-07-08 10:31 | PROGRESS NOTE ---
DATE: 07/08/2016 SUBJECTIVE: Yesterday this patient was about to be discharged, this patient was feeling better in the morning when I talked to him and his physical exam was benign. I talked to her daughter, who spent most of the day with him yesterday and she states also that he was doing good. Then close to 7 p.m. he started complaining all shortness of breath and he became unresponsive. Code Blue was activated. This patient was intubated and transferred to the ICU. I am not quite sure if he was intubated on the medical floor or in the ICU. Today, the prognosis is guarded. I talked to his daughter and I answered all her questions. This patient has a sluggish pupillary response, but also I do not feel any gag reflex and he has some postural changes, so I will get a CT scan of the head and I will consult neurology. Because this patient is on mechanical ventilation and respiratory failure, Pulmonary Department will be on board. OBJECTIVE: Vital Signs: Temperature 97.5, pulse 81, respiratory rate on the monitor 17, blood pressure 159/77 on mechanical ventilation, 60% oxygen flow. HEENT: Head normocephalic. No trauma. Pupils with sluggish response to light. Neck: Supple. No JVD. No masses. Chest: Decreased breath sounds at the bases with crackles and rhonchi bilaterally. Cardiovascular: RRR. Abdomen: Soft, nontender, nondistended. Extremities: He has a right BKA with a dressing that looks clean and dry. Left lower extremity with 1+ edema. Neurological: The patient is sedated and on mechanical ventilation. Sluggish pupillary response. Decreased gag reflex as per the nurse, and I can notice some postural changes. LABORATORY: WBC 10.8, hemoglobin 7.9, hematocrit 23.8, platelets 383. Sodium 140, potassium 4.3, chloride 103, bicarbonate 26, BUN 53, creatinine 2. Glucose 163, calcium 8.6, albumin 5.6. ASSESSMENT AND PLAN: 1. Acute hypercapnic respiratory failure. This patient is on mechanical ventilation and sedated. I am not quite sure why this patient is having this respiratory distress. We ordered a CT of the chest and abdomen that showed bilateral moderate pleural effusion with bibasilar atelectasis, and also there is a large calcified granuloma in the medial right lower lobe and a smaller calcified granuloma in the right middle lobe. There is a large calcified subcarinal lymph node indicating prior granulomatous disease. There are several calcified granulomata in the liver and spleen. Also, showed generalized anasarca, constipation. Pulmonary Department has been consulted. We will follow their recommendations. 2. Altered mental status. I will get a CT of the head without contrast and Neurology Department has been consulted. We will continue with mechanical ventilation. 3. Pulmonary edema. This patient is on Lasix drip, so far negative urine output. 4. Gangrene of the right foot, status post right zzvix-lvd-qezm amputation. Surgery Department has been following this patient. We will reconsult them if we have to. 5. Methicillin-resistant Staphylococcus aureus bacteremia secondary to diabetic foot infection. He is currently on daptomycin. This is day #5. We have been planning to continue with this for 9 more days. Blood cultures from 07/04/2016 has been negative. 6. Diabetes ketoacidosis, resolved. 7. Uncontrolled hypertension. Continue with the same management for now. 8. Type 2 diabetes. Since this patient is not eating at this moment and he is not getting any kind of nutritional support, I will stop the Levemir and I will continue with sliding scale. I will monitor the blood sugar. 9. This patient is full code. 10. Granulomatous disease. This patient has multiple granulomas in his lungs. Pulmonary Department is on board. We will check that with them. CRITICAL CARE TIME: 50 minutes. cc: Art Heredia MD
--- NOTE | 2016-07-08 11:23 | CONSULTATION ---
DATE OF CONSULTATION: 07/08/2016 REQUESTING PHYSICIAN: Dr. Swan. REASON FOR CONSULTATION: Respiratory failure status post cardiopulmonary arrest. HISTORY OF PRESENT ILLNESS: Mr. Figueroa is a 61-year-old black male with poorly controlled diabetes mellitus (hemoglobin A1c was 13.2 on admission 06/27/2016) who was admitted to the hospital 06/28/2016 with diabetic ketoacidosis. The patient had ischemia of the left leg and underwent right below knee amputation on 06/30/2016. Patient was scheduled for discharge on 07/07/2016 but the discharge was delayed due to dyspnea. Family called nursing staff yesterday evening that the patient had agonal breathing. Code sheet is not available for review on the chart but I did discuss with the nursing staff. Patient initially had a pulse at 1900 but no pulse at 1902. CPR continued until in 191 when a pulse was regained. He has been transported to the ICU. CT scan of the brain earlier this morning reveals chronic micro ischemic changes but no acute hemorrhage or stroke. PAST MEDICAL HISTORY/PROBLEM LIST: 1. Poorly controlled diabetes mellitus as per above. 2. Peripheral vascular disease as per above. 3. Hypertension. 4. Dyslipidemia. 5. Coronary artery disease, status post stent placement. 6. Chronic renal insufficiency. 7. MRSA bacteremia prior to foot amputation with MRSA, Klebsiella, and Proteus identified in the right wound culture. SOCIAL HISTORY: Nonsmoker by intake sheets. Occasional beer use. No illicit drugs. FAMILY HISTORY: Noncontributory. REVIEW OF SYSTEMS: Cannot be obtained. PHYSICAL EXAMINATION: General: Reveals a well-developed, well-nourished, black male, on mechanical ventilation. When the ventilator is interrupted, he does have intermittent full volume respiration. BP 159/77, heart rate 85, respiration rate 18, oxygen saturation 100% (FiO2 being decreased). HEENT: Pupils revealed minimal reactivity. Oropharynx has endotracheal tube in place. Neck: Supple. Chest: Reveals coarse rhonchi bilaterally. Cardiac Exam: Distant heart sounds. Normal S1, normal S2. Abdomen: Soft without hepatosplenomegaly. Extremities: Reveal right below knee amputation. Dressing was not removed. LABORATORIES: Sodium 140, potassium 4.3, chloride 103, bicarbonate 26, BUN 53, creatinine 2.0, chloride 163. Arterial blood gas reveals a pH 7.47, pCO2 of 41, PO2 of 204. White blood count 10.9, hemoglobin 7.9, platelet count 383,000. Chest x-ray reveals bilateral effusions and bilateral parenchymal infiltrates. IMPRESSION: A 61-year-old male with poorly controlled diabetes mellitus, peripheral vascular disease, coronary artery disease, status post cardiopulmonary arrest. The patient had at least 12 minutes of CPR. He remains unresponsive. He does have some respiratory effort and therefore is not brain . He has acute hypoxemic respiratory failure. He has bilateral pulmonary infiltrates consistent with pneumonia and bilateral pleural effusions. RECOMMENDATIONS: 1. Continue full ventilatory support to see if his brain function improves. 2. Check sputum for C and S. 3. Continue antibiotics per Dr. Brendan Payne. 4. Routine bronchodilator therapy. 5. Gastric acid suppression. 6. Begin end of life discussions with the family. With his history of diabetes mellitus, peripheral vascular disease, evidence of chronic ischemic disease in the brain, 12 minutes of CPR will likely leave him at risk for significant anoxic ischemic damage. cc: Sebastian Mclean MD
[2016-07-08] MEDS: CUBICIN (FOR INPATIENT USE) 500 MG in NS 100 ML IV SCH (11:28)
--- NOTE | 2016-07-08 12:28 | CONSULTATION ---
DATE OF CONSULTATION: 07/08/2016 HISTORY: Mr. Figueroa is 61 years old and he appears to have anoxic brain injury. History is that he had longstanding poorly controlled diabetes mellitus, admitted a week ago with DKA, ischemic left leg, DKA was treated and he had surgical management of left leg a few days ago. He was ready for discharge yesterday and then complained of dyspnea. He apparently had respiratory arrest and was resuscitated. He has not regained consciousness. According to family, there is no history of previous [employer] event. Specifically, no history of coma, stroke, seizure, serious head injury, ethanol or substance intoxication. Workup includes noncontrast CT of the head this morning showing chronic microvascular ischemic change similar to appearance on 06/27/2016 scan. Lab work shows blood sugars 160s, mildly elevated liver enzymes, WBC count 10,890, anemia. He has been afebrile. Blood pressures had been recorded at 140s-170s systolic prior to his arrest yesterday. PHYSICAL EXAMINATION: On exam now, with propofol on board, he is supine, unresponsive, intubated and mechanically ventilated. I did not see any obvious evidence that he was triggering the ventilator. There is minimal lateral eye movement with passive head turning. Corneal reflex is minimal bilaterally. There is very slight pupil reaction to bright light bilaterally. Limb tone is symmetric. Neck is supple. IMPRESSION: Global encephalopathy, likely anoxic brain injury. With propofol on board, I cannot make any more certain statement now. I will see if EEG can be done to make sure he is not having subclinical seizures (he does have occasional twitching movement in the face and limbs and this may be more prominent when propofol dose is reduced). I have discussed at length and very frankly with family, the uncertain prognosis but likelihood that, in light of his age, risk factors for severe peripheral vascular disease and lack of clinical improvement in more than 12 hours since arrest, prognosis is not good. Thanks for asking me to see Mr. Figueroa. cc: MD RHETT Carney III
[2016-07-08] MEDS ORDERED: ZOSYN 2.25 GM/NS 2.25 GM/50 ML IVPB IV SCH (16:00)
[2016-07-08] MEDS: LASIX 100 MG in NS 90 ML IV SCH (16:12)
--- NOTE | 2016-07-08 18:51 | PROGRESS NOTE ---
DATE: 07/08/2016 PRESENT ILLNESS: The patient has methicillin-resistant Staph aureus which originated from his infected right foot. He has undergone a right [id number] amputation. Last night, the patient developed a cardiac arrest and required resuscitation. He appears now on his chest x-ray to have bilateral infiltrates which could be due to aspiration pneumonia. MEDICATIONS: The patient has been on daptomycin for 6 days. PHYSICAL EXAMINATION: Vital Signs: Temperature is 96.1 degrees, pulse 69, respirations 14, blood pressure 122/72. Cardiovascular: Heart rate is regular. Lungs: Have bilateral rhonchi. HEENT: The patient is intubated with orotracheal tube and an NG tube is present also. Extremities: The right leg is in an immobilizer. LAB AND RADIOGRAPHIC STUDIES: Chest x-ray shows bilateral infiltrates. Sputum and urine cultures are pending. The patient's CBC today shows a white count of 10,890, hemoglobin 7.9, platelet count 283,000. Patient's blood gases show a pH of 7.47, PO2 of 204 and a pCO2 of 41. Creatinine is 2. GFR is 41. ASSESSMENT AND PLAN: I changed the patient from daptomycin and Zosyn to Zyvox and meropenem pending culture results. The patient needs 6 more days of treatment for his methicillin- resistant Staph aureus bacteremia. COMORBIDITIES: Include end-stage renal disease, peripheral vascular disease and now the patient has had a cardiac arrest as well. cc: Brendan Payne MD
[2016-07-08] MEDS: MERREM 1 GM in NS 50 ML IV SCH (19:21)
[2016-07-08] MEDS: ZYVOX PO SCH (22:16)
[2016-07-08] MEDS: PROTONIX IV SCH (22:17)
[2016-07-09] MEDS: HUMULIN R SUBQ SCH ×5 (01:39→22:08)
[2016-07-09] MEDS: NITROGLYCERIN TOP SCH ×4 (01:40→19:50)
[2016-07-09] MEDS: MERREM 1 GM in NS 50 ML IV SCH ×3 (03:00→17:42)
[2016-07-09] MEDS: DUONEB (A & A) INH SCH ×6 (03:49→22:42)
[2016-07-09 04:28] LABS: ALLEN TEST YES; BE 7.4 mmoll (-3.0-3.0); BLOOD TYPE ARTERIAL; DRAW SITE R RADIAL; METHB 1.5 % (0.0-1.5); O2(CT) 11.9 mL/dL (15.0-23.0); PCO2(98.6) 28 mmHg (35-45); PO2(98.6) 103 mmHg (60-100); SAMPLE BLOOD; SAO2 98.9 % (95.0-100.0); SRATE 14 BPM; THB 8.6 g/dL (11.5-17.4); TVOL 650 mL
[2016-07-09 04:30] LABS: MODALITY VENTILATOR; pH(98.6) 7.62 (7.35-7.45)
[2016-07-09 04:55] LABS: MANUAL DIFF NEEDED? NO
[2016-07-09 04:58] LABS: BASO% 0.4 % (0.0-0.8); EOS# 0.08 X1000 (0.0-0.7); EOS% 1.2 % (0.0-10.0); HEMATOCRIT 25.2 % (42.0-52.0); HEMOGLOBIN 8.6 g/dL (14.0-18.0); IMM GRAN# 0.04 X1000 (0.0-0.04); IMM GRAN% 0.6 % (0.0-0.5); LYMPH# 1.54 X1000 (1.2-3.4); LYMPH% 22.8 % (20.5-51.1); MCH 27.6 PG (27-31); MCHC 34.1 g/dL (33-37); MCV 80.8 FL (81-99); MONO# 0.32 X1000 (0.11-0.59); MONO% 4.7 % (1.7-9.3); MPV 9.7 FL (7.4-10.4); NEUT% 70.3 % (42.2-75.2); PLT 378 X1000 (130-400); RBC 3.12 XMIL (4.7-6.1)
[2016-07-09 05:11] LABS: MAGNESIUM 1.8 mg/dL (1.5-2.7)
[2016-07-09 05:16] LABS: ALBUMIN 2.1 g/dL (3.5-5.0); CALCIUM 8.5 mg/dL (8.8-10.2); POTASSIUM 3.6 mmol/L (3.5-5.1); TOTAL BILIRUBIN 0.24 mg/dL (0.20-1.00); TOTAL PROTEIN 6.1 g/dL (6.3-8.3)
[2016-07-09] MEDS: DIPRIVAN 1% 1,000 MG/100 ML BOTTLE IV SCH ×7 (05:21→22:53)
[2016-07-09] MEDS ORDERED: CALMOSEPTINE OINTMENT TOP PRN (05:25)
[2016-07-09] MEDS: NEURONTIN PO SCH ×3 (08:28→17:09)
[2016-07-09] MEDS: MIRALAX PO SCH (08:28)
[2016-07-09] MEDS: PERIDEX MT SCH ×2 (08:28→20:06)
[2016-07-09] MEDS: ZYVOX PO SCH ×2 (08:28→20:05)
[2016-07-09] MEDS: APRESOLINE PO SCH ×3 (08:29→17:09)
[2016-07-09] MEDS: NORVASC PO SCH ×2 (08:29→20:05)
[2016-07-09] MEDS: COREG PO SCH ×2 (08:29→20:05)
[2016-07-09] MEDS: HEPARIN SUBQ SCH (08:29)
--- NOTE | 2016-07-09 08:48 | Diag Imaging Result Document ---
PROCEDURE NAME: CHEST-PORTABLE - 07/09/2016 SINGLE FRONTAL RADIOGRAPH OF THE CHEST: COMPARISON: 07/08/2016. FINDINGS: ET tube is in stable position. NG tube projects below the diaphragm and out of the field of view. Left PICC line is stable. Diffuse bilateral infiltrates appear to have improved during the interval likely representing improved pulmonary edema. No new consolidations are identified. Cardiac silhouette is stable. IMPRESSION: Improved interstitial infiltrates during the interval.
--- NOTE | 2016-07-09 10:24 | PROGRESS NOTE ---
DATE: 07/09/2016 SUBJECTIVE: This patient has been transferred to the ICU secondary to altered mental status and respiratory failure. Louis Florez was called and they did ACLS for about 12 minutes. Today I evaluated this patient and he has been off propofol for about 1 hour during his sedation vacation. This patient is not alert. He is having generalized twitching. I do not see any response to pain stimulation. Sluggish pupillary reflex. OBJECTIVE: Vital Signs: Temperature 96 degrees, pulse 54, respiratory rate 10, blood pressure 122/71, oxygen saturation 100% on mechanical ventilation, 40% oxygen flow. HEENT: Head normocephalic. No trauma. Pupils with sluggish response to light. Neck: Supple. No JVD. No masses. Chest: Decreased breath sounds at the bases with crackles and rhonchi bilaterally. Cardiovascular: RRR. Abdomen: Soft, nontender, nondistended. Extremity: He has a right BKA with a dressing. That looks clean and dry. Left lower extremity, 2+ edema. I can notice some signs of ischemic at the level of the toes, distal part of the toes. Neurological: The patient is not sedated but he is not responding to pain stimulation. He is not alert. Sluggish pupillary response. Decreased gag reflex as per the nurse. He looks like he has some postural changes. LABORATORY: WBC 6.7, hemoglobin 8.6, hematocrit 25.2, platelets 378,000. Sodium 142, potassium 3.6, chloride 101, bicarbonate 24, BUN 54, creatinine 2.2, glucose 146, calcium 8.5. ASSESSMENT AND PLAN: 1. Altered mental status, likely secondary to hypoxic brain injury. This patient is still on mechanical ventilation. He is not responding to stimuli. I talked to the son and the family members and I explained to them the situation and his poor prognosis. Neurology department is on board. 2. Respiratory failure. Continue with the same management. This patient is on mechanical ventilation. Pulmonary department is on board. 3. Pulmonary edema. Continue with Lasix. His urine output has been good with negative balance. 4. Gangrene of the right foot status post right BKA. Aware. Continue to follow. 5. Methicillin-resistant Staphylococcus aureus bacteremia, likely secondary to diabetic foot infection. Currently on antibiotics. 6. Diabetes ketoacidosis, resolved. 7. Uncontrolled hypertension. Continue the same management for now. 8. Type 2 diabetes. Continue with sliding scale insulin. Will monitor the blood sugar. 9. This patient is full code. 10. Granulomatosis disease. This patient has multiple granulomas of his lungs. Pulmonary department on board. 11. Overall, this patient has poor prognosis. This patient spent about 12 minutes coding. I do think that this patient has anoxic brain injury. Family has been notified multiple times. CRITICAL CARE TIME: 35 minutes. cc: Art Heredia MD
[2016-07-09 11:58] LABS: BE 8.4 mmoll (-3.0-3.0); BLOOD TYPE ARTERIAL; DRAW SITE R BRACHIAL; METHB 1.4 % (0.0-1.5); PCO2(98.6) 29 mmHg (35-45); PO2(98.6) 92 mmHg (60-100); SAMPLE BLOOD; SAO2 98.4 % (95.0-100.0); SRATE 10 BPM; THB 9.5 g/dL (11.5-17.4); TVOL 650 mL
[2016-07-09 12:01] LABS: MODALITY VENTILATOR
[2016-07-09 12:02] LABS: pH(98.6) 7.62 (7.35-7.45)
--- NOTE | 2016-07-09 15:30 | PROGRESS NOTE ---
DATE: 07/09/2016 SUBJECTIVE: I came again to the ICU to evaluate this patient. No changes noted. This patient is still on mechanical ventilation and supportive management. I had a large conversation with several members of his family including his oldest daughter. This patient does not have a . We meet together and I explained the whole situation to them. I told them that the possibility of recovery is extremely low, that this patient has hypoxic brain injury and multiple comorbidities. He has been evaluated by Neurology Department and Pulmonary Department and they think about the same. After discussion they decided to put this patient DNR level 2 because he is already intubated. Like I mentioned before, this patient has poor prognosis. We spent about 12 minutes calling this patient. He has an anoxic brain injury. For now, we will continue with the same management. Time evaluating this patient again and talking to the family about 45 minutes. cc: Art Heredia MD
[2016-07-09] MEDS: PROTONIX IV SCH (15:35)
[2016-07-09] MEDS: SODIUM CHLORIDE 0.9% INJ SCH (15:35)
[2016-07-10] MEDS: NITROGLYCERIN TOP SCH ×4 (01:28→22:59)
[2016-07-10] MEDS: MERREM 1 GM in NS 50 ML IV SCH ×3 (02:31→17:54)
[2016-07-10] MEDS: DUONEB (A & A) INH SCH ×6 (02:39→23:30)
[2016-07-10] MEDS: PROTONIX IV SCH ×2 (03:54→15:28)
[2016-07-10] MEDS: DIPRIVAN 1% 1,000 MG/100 ML BOTTLE IV SCH ×5 (04:13→23:00)
[2016-07-10 04:42] LABS: ALLEN TEST YES; BE 5.1 mmoll (-3.0-3.0); BLOOD TYPE ARTERIAL; DRAW SITE R RADIAL; METHB 1.5 % (0.0-1.5); O2(CT) 16.5 mL/dL (15.0-23.0); PCO2(98.6) 39 mmHg (35-45); PO2(98.6) 103 mmHg (60-100); SAMPLE BLOOD; SAO2 98.8 % (95.0-100.0); SRATE 10 BPM; THB 12.1 g/dL (11.5-17.4); TVOL 650 mL; pH(98.6) 7.48 (7.35-7.45)
[2016-07-10 04:44] LABS: MODALITY VENTILATOR
[2016-07-10 05:17] LABS: MANUAL DIFF NEEDED? NO
[2016-07-10 05:55] LABS: ALBUMIN 1.9 g/dL (3.5-5.0); BASO% 0.6 % (0.0-0.8); CALCIUM 8.4 mg/dL (8.8-10.2); EOS# 0.12 X1000 (0.0-0.7); EOS% 2.4 % (0.0-10.0); HEMATOCRIT 25.2 % (42.0-52.0); HEMOGLOBIN 8.6 g/dL (14.0-18.0); IMM GRAN# 0.02 X1000 (0.0-0.04); IMM GRAN% 0.4 % (0.0-0.5); LYMPH# 1.48 X1000 (1.2-3.4); LYMPH% 29.5 % (20.5-51.1); MCHC 34.1 g/dL (33-37); MCV 82.1 FL (81-99); MONO# 0.25 X1000 (0.11-0.59); NEUT% 62.1 % (42.2-75.2); PLT 386 X1000 (130-400); RBC 3.07 XMIL (4.7-6.1); TOTAL BILIRUBIN 0.21 mg/dL (0.20-1.00); TOTAL PROTEIN 5.5 g/dL (6.3-8.3)
[2016-07-10] MEDS: HUMULIN R SUBQ SCH ×4 (06:39→23:00)
[2016-07-10] MEDS: NORVASC PO SCH ×2 (08:24→20:22)
[2016-07-10] MEDS: PERIDEX MT SCH ×2 (08:24→20:22)
[2016-07-10] MEDS: ZYVOX PO SCH ×2 (08:24→20:22)
[2016-07-10] MEDS: MIRALAX PO SCH (08:24)
[2016-07-10] MEDS: APRESOLINE PO SCH ×3 (08:24→17:54)
[2016-07-10] MEDS: NEURONTIN PO SCH ×3 (08:24→17:54)
[2016-07-10] MEDS: COREG PO SCH ×2 (08:25→20:22)
--- NOTE | 2016-07-10 08:55 | Diag Imaging Result Document ---
PROCEDURE NAME: CHEST-PORTABLE - 07/10/2016 SINGLE FRONTAL RADIOGRAPH OF THE CHEST: COMPARISON: 07/09/2016. FINDINGS: ET tube is in stable position. NG tube projects below the diaphragm and out of the field of view. The left PICC line is stable. The patient is rotated toward the right. Bilateral infiltrates are approximately stable, likely representing edema. No new consolidations identified. Cardiac silhouette is stable. IMPRESSION: Stable chest.
[2016-07-10] MEDS: CLINIMIX E 4.25%-5% SOLUTION 1,000 ML IV SCH ×2 (09:51→23:01)
--- NOTE | 2016-07-10 10:19 | PROGRESS NOTE ---
DATE: 07/10/2016 SUBJECTIVE: Family members at the bedside. No acute events overnight. This patient has been transferred to the ICU secondary to a cardiac arrest. Code blue was activated a few days ago and ACLS was performed for about 12 minutes. Like I mentioned before, no acute events overnight. He is about the same compared with yesterday. OBJECTIVE: Vital Signs: Temperature 96.4 degrees, pulse 61, respiratory rate 16, blood pressure 91/66, oxygen saturation 99 on mechanical ventilation on 40% oxygen flow. HEENT: Head normocephalic. No trauma. Pupils with sluggish response to light. Neck: Supple. No JVD. No masses. Central trachea. Chest: Clear chest. Decreased breath sounds at the bases with mild rales and rhonchi scattered bilaterally. Cardiovascular: RRR. No murmurs. Abdomen: Soft, nontender, nondistended. Extremities: He has a right BKA with a dressing that looks clean. Left lower extremity with 2+ edema. I can notice some signs of ischemia at the level of the distal part of the toes. Neurological Examination: The patient is sedated and intubated. Laboratory: WBC 5, hemoglobin 8.6, hematocrit 25.2, platelets 386,000. Sodium 143, potassium 4, chloride 102, bicarbonate 25, BUN 51, creatinine 2.1, glucose 157, calcium 8.4, albumin 1.9. ASSESSMENT AND PLAN: 1. Altered mental status, likely secondary to hypoxic brain injury. This patient is still on mechanical ventilation. He is on sedation at this moment. Family aware about the possibility of hypoxic brain injury. Neurology department is on board. 2. Respiratory failure. Continue with the same management. This patient is on mechanical ventilation. Pulmonary department is on board. 3. Pulmonary edema. Lasix drip has been stopped. We will start with 1 dose daily of Lasix intravenous 40 mg. 4. Gangrene of the left foot, status post right below knee amputation. Aware. Continue to follow. 5. Methicillin-resistant Staphylococcus aureus bacteremia, likely secondary to diabetic foot infection. Currently on antibiotics. Infectious disease department is following this patient. 6. Diabetes ketoacidosis, resolved. 7. Uncontrolled hypertension. The blood pressure is stable now. 8. Type 2 diabetes. Continue with sliding scale insulin. We will monitor the blood sugar. 9. Granulomatous disease. This patient has multiple granulomas on his lungs. Pulmonary department on board. 10. Full code. 11. Overall, this patient has poor prognosis. This patient spent about 12 minutes coding. This patient probably has anoxic brain injury. Family member has been notified multiple times and neurology department is on board. 12. Nutritional status. I will start this patient on Clinimix today. CRITICAL CARE TIME: Thirty-five minutes. cc: Art Heredia MD
[2016-07-10] MEDS: SODIUM CHLORIDE 0.9% INJ SCH (15:28)
[2016-07-11] MEDS: DIPRIVAN 1% 1,000 MG/100 ML BOTTLE IV SCH ×4 (01:30→09:22)
[2016-07-11] MEDS: NITROGLYCERIN TOP SCH ×3 (01:33→14:50)
[2016-07-11] MEDS: MERREM 1 GM in NS 50 ML IV SCH ×3 (01:34→18:41)
[2016-07-11] MEDS: DUONEB (A & A) INH SCH ×4 (03:05→16:00)
[2016-07-11] MEDS: PROTONIX IV SCH ×2 (03:05→14:49)
[2016-07-11 04:49] LABS: ALLEN TEST YES; BE 7.5 mmoll (-3.0-3.0); BLOOD TYPE ARTERIAL; DRAW SITE R RADIAL; METHB 1.7 % (0.0-1.5); O2(CT) 11.7 mL/dL (15.0-23.0); PCO2(98.6) 39 mmHg (35-45); PO2(98.6) 110 mmHg (60-100); SAMPLE BLOOD; SAO2 98.9 % (95.0-100.0); SRATE 10 BPM; THB 8.5 g/dL (11.5-17.4); TVOL 650 mL; pH(98.6) 7.51 (7.35-7.45)
[2016-07-11 04:50] LABS: MODALITY VENTILATOR
[2016-07-11 05:26] LABS: MANUAL DIFF NEEDED? NO
[2016-07-11 05:30] LABS: BASO% 0.9 % (0.0-0.8); EOS# 0.15 X1000 (0.0-0.7); EOS% 2.8 % (0.0-10.0); HEMATOCRIT 25.1 % (42.0-52.0); HEMOGLOBIN 8.3 g/dL (14.0-18.0); IMM GRAN# 0.03 X1000 (0.0-0.04); IMM GRAN% 0.6 % (0.0-0.5); LYMPH# 1.37 X1000 (1.2-3.4); LYMPH% 25.9 % (20.5-51.1); MCH 27.3 PG (27-31); MCHC 33.1 g/dL (33-37); MCV 82.6 FL (81-99); MONO# 0.33 X1000 (0.11-0.59); MONO% 6.3 % (1.7-9.3); MPV 9.7 FL (7.4-10.4); NEUT% 63.5 % (42.2-75.2); PLT 367 X1000 (130-400); RBC 3.04 XMIL (4.7-6.1)
[2016-07-11 06:39] LABS: CALCIUM 8.3 mg/dL (8.8-10.2); POTASSIUM 3.8 mmol/L (3.5-5.1); TOTAL BILIRUBIN 0.24 mg/dL (0.20-1.00); TOTAL PROTEIN 5.3 g/dL (6.3-8.3)
[2016-07-11] MEDS: HUMULIN R SUBQ SCH ×3 (06:40→17:36)
[2016-07-11] MEDS ORDERED: CEREBYX IV ONE ×2 (07:58→15:00)
--- NOTE | 2016-07-11 08:13 | PROGRESS NOTE ---
DATE: 07/11/2016 Mr. Figueroa has not regained consciousness. He continues heavily sedated with Diprivan. He has had some twitching movement, but nothing that appears clinically to be seizure. We have loaded him with phenytoin as a precaution. Prognosis remains very poor. cc: Benjamin Arcos III, MD
[2016-07-11] MEDS ORDERED: CEREBYX 1,000 MG in NS 50 ML IV ONE (08:30)
[2016-07-11] MEDS: NORVASC PO SCH (08:41)
[2016-07-11] MEDS: APRESOLINE PO SCH ×3 (08:41→17:38)
[2016-07-11] MEDS: NEURONTIN PO SCH ×3 (08:41→18:33)
[2016-07-11] MEDS: ZYVOX PO SCH (08:41)
[2016-07-11] MEDS: PERIDEX MT SCH (08:41)
[2016-07-11] MEDS: COREG PO SCH ×2 (08:42→10:09)
[2016-07-11] MEDS: MIRALAX PO SCH (08:43)
[2016-07-11] MEDS ORDERED: LASIX IV SCH (09:00)
--- NOTE | 2016-07-11 09:21 | PROGRESS NOTE ---
DATE: 07/11/2016 SUBJECTIVE: No family members at the bedside. This patient has been evaluated today by Dr. Arcos. He evaluated this patient and loaded him with fosphenytoin. This patient is still on mechanical ventilation and sedated. He did not regain consciousness during the weekend. I do believe that this patient has anoxic brain injury and very poor prognosis. I do believe that the next step is to finally corroborate the brain damage and talk to the family and decide if this patient is going to be extubated and possibly with hospice care. OBJECTIVE: Vital Signs: Temperature 96.4 degrees, pulse 61, respiratory rate 10, blood pressure 127/75, oxygen saturation 100% on mechanical ventilation, 40% oxygen flow. HEENT: Head normocephalic. No trauma. No pupillary response to light. Neck: Supple. No JVD. No masses. Central trachea. Chest: Decreased breath sounds at the bases with mild rales and rhonchi scattered bilaterally. Cardiovascular: RRR. No murmurs. Abdomen: Soft, nontender, nondistended. Extremity: He has a right BKA. He has left lower extremity 2+ edema. I can notice some signs of ischemic at the level of the distal part of the toes. Neurological: The patient is sedated and intubated. LABORATORY: WBC 5.2, hemoglobin 8.3, hematocrit 25.1, platelet 367,000. Sodium 140, potassium 3.8, chloride 101, bicarbonate 26, BUN 51, creatinine 2, glucose 194, calcium 8.3, albumin 2. ASSESSMENT AND PLAN: 1. Altered mental status likely secondary to hypoxic brain injury. Neurology department is on board. He is still on mechanical ventilation. He did not regain consciousness during the weekend. Family is aware about the possibility of brain damage. 2. Respiratory failure. Continue with the same management. 3. Pulmonary edema. Continue with IV Lasix. 4. Gangrene of the right foot status post right below-knee amputation. Continue to follow. 5. Methicillin-resistant Staphylococcus aureus bacteremia, likely secondary to diabetic foot infection. Currently on antibiotics. Infectious disease department is following this patient. 6. Diabetic ketoacidosis, resolved. 7. Uncontrolled hypertension. Blood pressure is stable now. 8. Type 2 diabetes. Continue with sliding scale. 9. Granulomatosis disease. This patient has multiple granulomas on his lungs. Pulmonary department is on board. 10. This patient is Do Not Resuscitate level 2. The family just wants to continue for now with mechanical ventilation but nothing else. 11. Overall, this patient has a poor prognosis. This patient spent about 12 minutes coding. This patient probably has anoxic brain injury. Family member has been notified multiple times and neurology department is on board. We are waiting for EEG to corroborate anoxic brain injury to decide extubation and possible hospice care. CRITICAL CARE TIME: 40 minutes. cc: Art Heredia MD
--- NOTE | 2016-07-11 09:50 | Diag Imaging Result Document ---
PROCEDURE NAME: CHEST-PORTABLE - 07/11/2016 PORTABLE CHEST X-RAY, 07/11/2016: COMPARISON: 07/10/2016. FINDINGS: Stable endotracheal tube, nasogastric tube and left PICC line in good position. There is improvement in the ill-defined central and bibasilar infiltrates. Stable retrocardiac consolidation/effusion. Stable mild cardiomegaly. IMPRESSION: Improvement from prior.
[2016-07-11 11:41] LABS: ALLEN TEST YES
[2016-07-11] MEDS ORDERED: LACRI-LUBE OPH OINT BOTH EYES PRN (12:50)
[2016-07-11] MEDS: CLINIMIX E 4.25%-5% SOLUTION 1,000 ML IV SCH (13:19)
[2016-07-11] MEDS: SODIUM CHLORIDE 0.9% INJ SCH (14:49)
[2016-07-11] MEDS ORDERED: CEREBYX 500 MG in NS 50 ML IV ONE (15:00)
[2016-07-11] MEDS ORDERED: MORPHINE ONE (17:06)
--- NOTE | 2016-07-11 17:29 | VASCULAR LAB ---
PROCEDURE NAME: Arterial Bilateral Legs - 06/28/2016 ARTERIAL STUDY REFERRING PHYSICIAN: INTERPRETING PHYSICIAN: Pradeep Lombardi MD TECHNOLOGIST: Hussain. FINDINGS: The pressures appear artificially elevated; however, the right high thigh pressure is 153, the right calf pressure is 73 for a right AB index of 0.53. The left AB index is 0.88. The left great toe pressure is 57 for a total left brachial index of 0.41. The PVRs are diminished at the calf level on the right. PBGs are flat in the right foot and they are diminished in the left foot. INTERPRETATION: Right superficial femoral occlusion. There is also digital vessel disease on the left. cc: MD Priscila Jorge CRNP
[2016-07-11] MEDS ORDERED: MORPHINE IV ONE (17:34)
--- NOTE | 2016-07-11 19:58 | EEG REPORT ---
DATE: 07/08/2016 DATE OF EXAMINATION: 07/08/2016 EEG: #[id number]. BLASTING CONTRACT MAN: Claribel Byrnes. REFERRING PHYSICIAN: Benjamin Arcos III, MD BACKGROUND INFORMATION: Technique: A digitally recorded EEG with 1 EKG channel was obtained. HISTORY OF PRESENT ILLNESS: This is a 61-year-old male, who is status post respiratory arrest. He is sedated on the ventilator. He has jerking and twitching. There was a question of seizure. EEG is ordered to detect evidence of possible seizures. MEDICATION LIST: Notable for propofol. EEG FINDINGS: The library cataloging technician noted that the propofol was discontinued at the start of the study. A posterior dominant alpha rhythm is notably absent. A burst suppression pattern is seen throughout the study. The bursts consist of mixed frequencies, but also of sharps and spikes. [place] through the study, the bursts become more frequent, every 1-2 seconds. Near the in the record, the bursts are longer in duration and consist of repetitive spikes. No electrographic seizures are seen. No focal slowing is appreciated. Hyperventilation was not performed. Photic stimulation did not induce a driving response. Ham Passer noted that head jerking is not associated with every spike, but with most of them. Sleep findings: The patient is sedated. EKG demonstrates regular RR interval. IMPRESSION AND RECOMMENDATIONS: This is an abnormal routine EEG study due to: 1. Burst suppression pattern consistent with pharmacologic sedation. Underlying cerebral pathology cannot be excluded. See below. 2. Bursts consisting of epileptiform discharges as detailed above. These increase later in the record to repetitive spikes during the bursts. This pattern of progression in the setting of discontinuing the propofol for this study is concerning for increased propensity to progress to status epilepticus if left off sedation. Clinical correlation is advised. cc: MD Benjamin Small III, MD [facility] HOSPITALHaritha
[2016-07-11 20:16] VITALS: BP 82/52
--- NOTE | 2016-07-12 14:49 | DISCHARGE SUMMARY ---
ADMISSION DATE: 06/27/2016 DISCHARGE DATE: 07/11/2016 HOSPITAL COURSE: This patient was admitted on 06/27/2016 at [facility]. Then this patient was transferred to [facility], this patient had a diabetic ketoacidosis, with a gangrene of the right foot, Dr. Cisse did a BKA on the right leg on 2016. Infectious Disease department was following this patient because he has an MRSA infection, he has bacteremia and diabetic foot infection. This patient was getting better on a daily basis and he was close to be discharged when a code blue was activated on 07/07/2016. This patient spent about 12 minutes coding and ended up anoxic brain injury. He was transferred to the ICU and this patient was intubated and placed on mechanical ventilation. We followed this patient closely for a few days and he did not improve his mental status. We talked to the family multiple times about his situation and they agreed at the beginning to put this patient DNR level 2. Then on 07/11/2016 they decided to withdraw care at 5 p.m. The respiratory therapist removed the endotracheal tube at 17:15 on 07/11/2016, and this patient was placed on oxygen. Mr. Emerson Figueroa at 21:57 on 07/11/2016. DISCHARGE DIAGNOSES: 1. Altered mental status likely secondary to hypoxic brain injury. 2. Respiratory failure. 3. Pulmonary edema. 4. Gangrene of the right foot status post right below-knee amputation. 5. Methicillin-resistant Staphylococcus aureus bacteremia. 6. Uncontrolled hypertension. 7. Type 2 diabetes. 8. Granulomatous disease. Like I have mentioned before, this patient's demise at 21:57 on 07/11/2016. cc: MD RHETT Clark
== END 2016-07-11 21:57 | disposition expired ==
LOC: P.ED 19:31 → P.MEDSURG 23:51 → SUATTDRO 23:51 → P.ICU 06-28 12:46 → 3S 06-29 21:31 → 3N 07-01 12:40 → ICU 07-07 20:00
PROVIDERS: ATTEND Internal Medicine